=== PATIENT | male | born 1945 | race African-American/Black ===

== ENCOUNTER 2019-04-05 10:03 | Inpatient (IN) | payer MEDICARE ==
[~2019-04-05] VITALS: Ht 182.9 cm; Wt 81.6 kg
--- NOTE | 2019-04-05 10:33 | Emergency Room Report ---
History of Present Illness General Chief Complaint: Altered Level of Consciousness Source: EMS Present Illness HPI Disclaimer: Please note that this report is being documented using DRAGON technology. This can lead to erroneous entry secondary to incorrect interpretation by the dictating instrument. HPI: This 73-year-old male with history of liver cirrhosis requiring recurrent paracentesis, multiple strokes with baseline slurred speech, CHF, CAD status post stenting, diabetes presenting for evaluation of altered mental status. states he was in the hospital several days ago for abdominal swelling and pain having undergone multiple paracentesis. States he was in his usual state of health last night but awoke altered this morning. He was difficult to arouse and EMS was called. They found him confused and brought him in for evaluation. He currently denies any symptoms. Does note worsening lower extremity edema over the past few weeks according to . PMH: Cirrhosis, hepatic encephalopathy, strokes, CHF, CAD, diabetes, hypertension, hyperlipidemia PSH: Cardiac stent Allergies: None listed Social Hx: Former alcohol abuse Allergies: Coded Allergies: No Known Allergies (Unverified , 04/05/19) Nursing Documentation-PMH Past Medical History: No History, Except For Hx Diabetes: Yes Hx Cerebrovascular Accident: Yes Review of Systems All Other Systems: limited - HPI and recent history obtained from . Patient cannot provide history due to clinical condition Physical Exam Vital Signs Date Time Temp Pulse Resp B/P (MAP) Pulse Ox O2 Delivery O2 Flow Rate FiO2 04/05/19 09:59 97.5 50 16 130/73 (92) 99 Room Air General: Awake and disoriented. Pleasant, nonsensical answers HEENT: NC/AT. EOMI. slightly icteric sclera bilaterally. No nystagmus. Dry mucous membranes Cardiovascular: RRR. S1 and S2 normal. No murmur appreciated Resp: Normal work of breathing. No cough, wheezing or crackles appreciated Abdomen: Abdomen is soft, nondistended. Nontender. There is a bandage over the left lower quadrant with a puncture wound underneath that is nonbleeding, no signs of infection. No fluid wave appreciated. Skin: Intact. No abrasions, laceration or rash over the exposed skin aside from the puncture move the left side MSK: Normal tone and bulk. Moving all extremities. No obvious deformity. 3+ lower extremity pitting edema up to the knees bilaterally Neuro: Awake, pleasant, oriented to self only. Slightly slurred speech. Facial expressions are symmetrical. He is moving all extremities. Medical Decision Making Diagnostic Impression: Primary Impression: Hepatic encephalopathy Additional Impression: CKD (chronic kidney disease) ER Course This is a 73-year-old male with a history of liver cirrhosis presenting for altered mental status today. Differential includes but is not limited to traumatic head injury given his recent falls, hepatic encephalopathy, electrolyte abnormalities, infection. Will start a broad metabolic and infectious work-up as well as obtain a CT scan of the head. He will require admission. At this time I see no clinical evidence of SBP or need for emergent paracentesis Laboratory Tests Test 04/05/19 10:26 04/05/19 12:46 White Blood Count 7.3 K/UL (4.8-10.8) Red Blood Count 3.88 M/UL (4.70-6.10) L Hemoglobin 11.9 G/DL (14.2-18.0) L Hematocrit 35.8 % (42.0-52.0) L Mean Corpuscular Volume 92 FL (80-99) Mean Corpuscular Hemoglobin 30.7 PG (27.0-31.0) Mean Corpuscular Hemoglobin Concent 33.4 G/DL (32.0-36.0) Red Cell Distribution Width 14.6 % (11.6-14.8) Platelet Count 178 K/UL (150-450) Mean Platelet Volume 7.9 FL (6.5-10.1) Neutrophils (%) (Auto) 57.3 % (45.0-75.0) Lymphocytes (%) (Auto) 25.5 % (20.0-45.0) Monocytes (%) (Auto) 11.2 % (1.0-10.0) H Eosinophils (%) (Auto) 4.3 % (0.0-3.0) H Basophils (%) (Auto) 1.8 % (0.0-2.0) Sodium Level 141 MMOL/L (136-145) Potassium Level 4.5 MMOL/L (3.5-5.1) Chloride Level 108 MMOL/L (98-107) H Carbon Dioxide Level 21 MMOL/L (21-32) Anion Gap 12 mmol/L (5-15) Blood Urea Nitrogen 23 mg/dL (7-18) H Creatinine 2.0 MG/DL (0.55-1.30) H Estimate Glomerular Filtration Rate mL/min (>60) Glucose Level 141 MG/DL (74-106) H Lactic Acid Level 2.00 mmol/L (0.4-2.0) Calcium Level 9.3 MG/DL (8.5-10.1) Total Bilirubin 1.9 MG/DL (0.2-1.0) H Direct Bilirubin 0.5 MG/DL (0.0-0.3) H Aspartate Amino Transferase (AST) 46 U/L (15-37) H Alanine Aminotransferase (ALT) 14 U/L (12-78) Alkaline Phosphatase 93 U/L (46-116) Ammonia 176 umol/L (11-32) H Total Creatine Kinase 97 U/L (26-308) Creatine Kinase MB 1.1 NG/ML (0.0-3.6) Creatine Kinase MB Relative Index 1.1 Troponin I 0.000 ng/mL (0.000-0.056) Pro-B-Type Natriuretic Peptide 361 pg/mL (0-125) H Total Protein 7.4 G/DL (6.4-8.2) Albumin 2.3 G/DL (3.4-5.0) L Globulin 5.1 g/dL Albumin/Globulin Ratio 0.5 (1.0-2.7) L Salicylates Level < 0.2 ug/mL (2.8-20) L Acetaminophen Level < 2 MCG/ML (10-30) L Serum Alcohol < 3 mg/dL Urine Color Pale yellow Urine Appearance Clear Urine pH 6 (4.5-8.0) Urine Specific [place] 1.010 (1.005-1.035) Urine Protein Negative (NEGATIVE) Urine Glucose (UA) Negative (NEGATIVE) Urine Ketones Negative (NEGATIVE) Urine Blood 2+ (NEGATIVE) H Urine Nitrite Negative (NEGATIVE) Urine Bilirubin Negative (NEGATIVE) Urine Urobilinogen Normal MG/DL (0.0-1.0) Urine Leukocyte Esterase Negative (NEGATIVE) Urine RBC 5-10 /HPF (0 - 0) H Urine WBC 2-4 /HPF (0 - 0) Urine Squamous Epithelial Cells Few /LPF (NONE/OCC) Urine Bacteria Few /HPF (NONE) Urine Opiates Screen Negative (NEGATIVE) Urine Barbiturates Screen Negative (NEGATIVE) Phencyclidine (PCP) Screen Negative (NEGATIVE) Urine Amphetamines Screen Negative (NEGATIVE) Urine Benzodiazepines Screen Negative (NEGATIVE) Urine Cocaine Screen Negative (NEGATIVE) Urine Marijuana (THC) Screen Negative (NEGATIVE) EKG Diagnostic Results EKG Time: 10:30 Rate: normal Rhythm: NSR Other Impression Sinus rhythm, first-degree AV block with MA interval 314 ms. Prolonged QTc interval at 507 ms. Q waves in lead III and aVF consistent with prior infarct though of indeterminate age. There are no acute ischemic changes. Borderline left axis Rhythm Strip Diag. Results Rhythm Strip Time: 10:30 EP Interpretation: yes Rate: 60s Rhythm: NSR Reevaluation Time: 13:40 Last Vital Signs Date Time Temp Pulse Resp B/P (MAP) Pulse Ox O2 Delivery O2 Flow Rate FiO2 04/05/19 09:59 97.5 50 16 130/73 (92) 99 Room Air Status: unchanged Reevaluation Impression CT head unremarkable. No evidence of acute trauma. Labs show an elevated ammonia level consistent with hepatic encephalopathy and the scope of the patient's clinical presentation. He was given lactulose. Otherwise, his creatinine is elevated at 2.0 consistent with his kidney disease. No white count, labs otherwise largely unremarkable. No evidence of urinary tract infection. He will be admitted to the floor for further management. Disposition: ADMITTED INPATIENT Condition: Serious Ralph Man MD Apr 05, 2019 10:33
[2019-04-05 10:37] VITALS: BP 123/58
[2019-04-05 10:48] LABS: BASOPHILS % (AUTO) 1.8 % (0.0-2.0); EOSINOPHILS % (AUTO) 4.3 % (0.0-3.0); HEMATOCRIT 35.8 % (42.0-52.0); HEMOGLOBIN 11.9 G/DL (14.2-18.0); LYMPHOCYTES % (AUTO) 25.5 % (20.0-45.0); MEAN CORPUSCULAR VOLUME 92 FL (80-99); MONOCYTES % (AUTO) 11.2 % (1.0-10.0); NEUTROPHILS % (AUTO) 57.3 % (45.0-75.0); PLATELET COUNT 178 K/UL (150-450); RED BLOOD COUNT 3.88 M/UL (4.70-6.10); RED CELL DISTRIBUTION WIDTH 14.6 % (11.6-14.8); WHITE BLOOD COUNT 7.3 K/UL (4.8-10.8)
[2019-04-05 11:00] LABS: AMMONIA 176 umol/L (11-32)
[2019-04-05 11:21] LABS: ANION GAP 12 mmol/L (5-15); BLOOD UREA NITROGEN 23 mg/dL (7-18); CALCIUM 9.3 MG/DL (8.5-10.1); CARBON DIOXIDE 21 MMOL/L (21-32); CHLORIDE 108 MMOL/L (98-107); POTASSIUM 4.5 MMOL/L (3.5-5.1); SODIUM 141 MMOL/L (136-145)
[2019-04-05 11:34] LABS: ALANINE AMINOTRANSFERASE 14 U/L (12-78); ALBUMIN 2.3 G/DL (3.4-5.0); ALBUMIN/GLOBULIN RATIO 0.5 (1.0-2.7); ALKALINE PHOSPHATASE 93 U/L (46-116); ASPARTATE AMINO TRANSFERASE 46 U/L (15-37); BILIRUBIN,TOTAL 1.9 MG/DL (0.2-1.0); CKMB 1.1 NG/ML (0.0-3.6); CREATINE KINASE 97 U/L (26-308)
[2019-04-05 11:35] LABS: BILIRUBIN,DIRECT 0.5 MG/DL (0.0-0.3)
[2019-04-05] MEDS ORDERED: Lactulose 20gm/30ml UDC ORAL ONE (11:45)
--- NOTE | 2019-04-05 12:07 | Diagnostic Imaging Report ---
Indications: Altered level of consciousness Technique: Spiral acquisitions obtained through the brain. Angled axial and coronal 5 x 5 mm slices were reconstructed. Total dose length product 1376.09 mGycm. CTDI vol(s) 70.38 mGy. Dose reduction achieved using automated exposure control Comparison: None. Findings: There is age-related enlargement of the ventricles and extra axial CSF spaces. There is periventricular deep white matter low-attenuation consistent with chronic microvascular ischemic change. No acute intracranial hemorrhage or edema, mass effect, nor midline shift. Otherwise normal leal-white differentiation. There is evidence of prior bilateral cataract surgery. The mastoids are clear. The visualized sinuses are clear. The calvarium is intact Impression: Chronic and age-related changes, as described. Negative for acute intracranial bleed or mass effect The CT scanner at [facility] is accredited by the [employer] and the scans are performed using protocols designed to limit radiation exposure to as low as reasonably achievable to attain images of sufficient resolution adequate for diagnostic evaluation.
[2019-04-05 13:01] LABS: APPEARANCE,URINE CLEAR; BILIRUBIN, URINE NEGATIVE (NEGATIVE); COLOR,URINE PALE YELLOW; GLUCOSE, URINE (UA) NEGATIVE (NEGATIVE); KETONES,URINE NEGATIVE (NEGATIVE); LEUKOCYTE ESTERASE ,URINE NEGATIVE (NEGATIVE); NITRITE,URINE NEGATIVE (NEGATIVE); PH,URINE 6 (4.5-8.0); PROTEIN,URINE NEGATIVE (NEGATIVE); UROBILINOGEN,URINE NORMAL MG/DL (0.0-1.0)
[2019-04-05 13:45] VITALS: BP 127/59
[2019-04-05] MEDS ORDERED: ASPIRIN81 MG ORAL (13:54)
--- NOTE | 2019-04-05 14:36 | Consultation ---
Consult Note Consult Note asked to eval for renal failure This 73-year-old male with history of liver cirrhosis requiring recurrent paracentesis, multiple strokes with baseline slurred speech, CHF, CAD status post stenting, diabetes presenting for evaluation of altered mental status. states he was in the hospital several days ago for abdominal swelling and pain having undergone multiple paracentesis. States he was in his usual state of health last night but awoke altered this morning. He was difficult to arouse and EMS was called. They found him confused and brought him in for evaluation. He currently denies any symptoms. Does note worsening lower extremity edema over the past few weeks according to . PMH: Cirrhosis, hepatic encephalopathy, strokes, CHF, CAD, diabetes, hypertension, hyperlipidemia PSH: Cardiac stent Allergies: None listed Social Hx: Former alcohol abuse Past Medical History: No History, Except For Hx Diabetes: Yes Hx Cerebrovascular Accident: Yes data reviewed Amonia level high Assessment/Plan Renal failure- Likely chronic and multifactorial ( DM, HTN , Cirrhosui Hepatic encephalopathy Liver Cirrhosis CAD s/p CVAs lactulose slow hydrate cultures urine studies Phil Enriquez MD Apr 05, 2019 14:36
[2019-04-05 16:00] VITALS: BP 109/62
[2019-04-05] MEDS: Lactulose 20gm/30ml UDC ORAL SCH ×2 (17:57→21:09)
[2019-04-05 20:00] VITALS: BP 140/74
[2019-04-05 23:51] VITALS: BP 136/78
[2019-04-06 04:00] VITALS: BP 142/76
[2019-04-06 07:01] LABS: BASOPHILS % (AUTO) 1.5 % (0.0-2.0); EOSINOPHILS % (AUTO) 3.7 % (0.0-3.0); HEMATOCRIT 35.1 % (42.0-52.0); HEMOGLOBIN 11.6 G/DL (14.2-18.0); LYMPHOCYTES % (AUTO) 25.8 % (20.0-45.0); MEAN CORPUSCULAR VOLUME 92 FL (80-99); MONOCYTES % (AUTO) 10.9 % (1.0-10.0); NEUTROPHILS % (AUTO) 58.1 % (45.0-75.0); PLATELET COUNT 176 K/UL (150-450); RED BLOOD COUNT 3.79 M/UL (4.70-6.10); RED CELL DISTRIBUTION WIDTH 14.6 % (11.6-14.8); WHITE BLOOD COUNT 8.5 K/UL (4.8-10.8)
[2019-04-06 07:50] LABS: AMMONIA 95 umol/L (11-32)
[2019-04-06 07:51] LABS: ALANINE AMINOTRANSFERASE 19 U/L (12-78); ALBUMIN 2.2 G/DL (3.4-5.0); ALBUMIN/GLOBULIN RATIO 0.4 (1.0-2.7); ALKALINE PHOSPHATASE 90 U/L (46-116); ANION GAP 11 mmol/L (5-15); ASPARTATE AMINO TRANSFERASE 39 U/L (15-37); BILIRUBIN,TOTAL 2.1 MG/DL (0.2-1.0); BLOOD UREA NITROGEN 21 mg/dL (7-18); CALCIUM 9.1 MG/DL (8.5-10.1); CARBON DIOXIDE 21 MMOL/L (21-32); CHLORIDE 110 MMOL/L (98-107); CHOLESTEROL 61 MG/DL (< 200); CREATINE KINASE 83 U/L (26-308); CREATININE 1.9 MG/DL (0.55-1.30); FERRITIN 342 NG/ML (8-388); GAMMA GLUTAMYL TRANSPEPTIDASE 47 U/L (5-85); HDL CHOLESTEROL 28 MG/DL (40-60); PHOSPHORUS 3.3 MG/DL (2.5-4.9); SODIUM 142 MMOL/L (136-145); TRIGLYCERIDES 78 MG/DL (30-150)
[2019-04-06 07:52] LABS: BILIRUBIN,DIRECT 0.6 MG/DL (0.0-0.3)
[2019-04-06 08:00] VITALS: BP 112/72
[2019-04-06] MEDS: Aspirin Baby 81mg ORAL SCH (09:28)
[2019-04-06] MEDS: Lactulose 20gm/30ml UDC ORAL SCH ×4 (09:29→18:00)
[2019-04-06 12:00] VITALS: BP 109/60
--- NOTE | 2019-04-06 13:42 | Nephrology Progress Note ---
Assessment/Plan Problem List: (1) CKD (chronic kidney disease) (2) Hepatic encephalopathy (3) CAD (coronary artery disease) (4) CVA (cerebral vascular accident) Assessment Renal failure- Likely chronic and multifactorial ( DM, HTN , Cirrhosui Hepatic encephalopathy Liver Cirrhosis CAD s/p CVAs Plan lactulose po slow hydrate cultures urine studies St eval Per GI Subjective ROS Limited/Unobtainable: No Neurologic/Psychiatric: Reports: other - encephalopathic Objective Objective Last 24 Hour Vital Signs Date Time Temp Pulse Resp B/P (MAP) Pulse Ox O2 Delivery O2 Flow Rate FiO2 04/06/19 12:00 97.5 77 16 109/60 (76) 95 04/06/19 09:00 Room Air 04/06/19 08:00 97.7 76 17 112/72 (85) 97 04/06/19 04:00 97.6 79 19 142/76 (98) 96 04/05/19 23:51 97.9 71 17 136/78 (97) 97 04/05/19 20:13 Room Air 04/05/19 20:00 97.4 75 18 140/74 (96) 98 04/05/19 16:00 98.8 67 16 109/62 (78) 98 04/05/19 16:00 Room Air 04/05/19 15:49 Room Air 04/05/19 13:45 97.2 63 17 127/59 (81) 100 04/05/19 13:40 97.5 14 123/58 100 Room Air Intake and Output 04/05/19 04/06/19 19:00 07:00 Intake Total 100 ml 600 ml Balance 100 ml 600 ml Intake IV Total 100 ml 600 ml # Voids 1 3 Laboratory Tests 04/06/19 05:00: Urine Eosinophils None seen, Urine Random Sodium 104 04/06/19 05:44: White Blood Count 8.5, Red Blood Count 3.79L, Hemoglobin 11.6L, Hematocrit 35.1L , Mean Corpuscular Volume 92, Mean Corpuscular Hemoglobin 30.7, Mean Corpuscular Hemoglobin Concent 33.2, Red Cell Distribution Width 14.6, Platelet Count 176, Mean Platelet Volume 6.9, Neutrophils (%) (Auto) 58.1, Lymphocytes (% ) (Auto) 25.8, Monocytes (%) (Auto) 10.9H, Eosinophils (%) (Auto) 3.7H, Basophils (%) (Auto) 1.5, Sodium Level 142, Potassium Level 4.0, Chloride Level 110H, Carbon Dioxide Level 21, Anion Gap 11, Blood Urea Nitrogen 21H, Creatinine 1.9H, Estimat Glomerular Filtration Rate , Glucose Level 127H, Hemoglobin A1c 5.7, Uric Acid 8.3H, Calcium Level 9.1, Phosphorus Level 3.3, Magnesium Level 1.6L, Ferritin 342, Total Bilirubin 2.1H, Direct Bilirubin 0.6H , Gamma Glutamyl Transpeptidase 47, Aspartate Amino Transf (AST/SGOT) 39H, Alanine Aminotransferase (ALT/SGPT) 19, Alkaline Phosphatase 90, Ammonia 95H, Total Creatine Kinase 83, Troponin I 0.011, C-Reactive Protein, Quantitative 4.2H, Pro-B-Type Natriuretic Peptide 1528H, Total Protein 7.2, Albumin 2.2L, Globulin 5.0, Albumin/Globulin Ratio 0.4L, Triglycerides Level 78, Cholesterol Level 61, LDL Cholesterol 26, HDL Cholesterol 28L, Cholesterol/HDL Ratio 2.2L, Lipase 87, Vitamin B12 Level 936, Folate 9.1, Thyroid Stimulating Hormone (TSH) 1.972 Height (Feet): 6 Height (Inches): 0.00 Weight (Pounds): 180 General Appearance: no apparent distress Cardiovascular: normal rate Respiratory/Chest: decreased breath sounds Abdomen: distended, other - ascitis Objective LE edema Phil Enriquez MD Apr 06, 2019 13:42
--- NOTE | 2019-04-06 15:04 | Consultation ---
History of Present Illness General Date patient seen: Apr 06, 2019 Reason for Hospitalization: Altered Level of Consciousness Present Illness HPI 73-year-old male with history of liver cirrhosis requiring recurrent paracentesis, multiple strokes with baseline slurred speech, CHF, CAD status post stenting, diabetes presenting for evaluation of altered mental status. states he was in the hospital several days ago for abdominal swelling and pain having undergone multiple paracentesis. Also noted to have worsening lower extremity edema over the past few weeks according to . States has had this for sometime now but worsening recently right foot worse then left. surgery called to evaluate and assist with care. patient seen, chart reviewed, patient examined. PMH: Cirrhosis, hepatic encephalopathy, strokes, CHF, CAD, diabetes, hypertension, hyperlipidemia PSH: Cardiac stent Allergies: None listed Social Hx: Former alcohol abuse Allergies: Coded Allergies: No Known Allergies (Unverified , 04/05/19) Medication History Scheduled Aspirin* (Aspirin*), 81 MG ORAL DAILY, (Reported) Patient History History Provided By: Patient, Family Member, Medical Record, PMD Healthcare decision maker Resuscitation status Full Code Advanced Directive on File No Past Medical/Surgical History Past Medical/Surgical History: (1) Abdominal pain (2) Leg edema (3) Hepatic encephalopathy (4) CKD (chronic kidney disease) (5) CAD (coronary artery disease) (6) CVA (cerebral vascular accident) Review of Systems Review of Symptoms General ROS: no weight loss or fever Psychological ROS: no depression or mood changes, no memory loss Ophthalmic ROS: no visual changes or eye irritation ENT ROS: no nasal congestion, hearing loss, dizziness Allergy and Immunology ROS: no allergic symptoms or urticaria Hematological and Lymphatic ROS: no swollen glands, unusual bleeding or bruising Endocrine ROS: no polyuria, polydipsia, weight changes, temperature intolerance Respiratory ROS: no cough, shortness of breath, or wheezing Cardiovascular ROS: no chest pain or dyspnea on exertion Gastrointestinal ROS: denies abdominal pain, no bright red blood in stool. Musculoskeletal ROS: no myalgias or arthralgias Neurological ROS: no TIA or stroke symptoms Dermatological ROS: no new or changing skin lesions, rashes or pruritis Physical Exam Physical Exam General appearance: alert, cooperative, no distress, appears stated age Head: Normocephalic, without obvious abnormality, atraumatic Eyes: conjunctivae/corneas clear. PERRL, EOM's intact. Fundi benign Throat: Lips, mucosa, and tongue normal. Teeth and gums normal Neck: supple, symmetrical, trachea midline, no adenopathy, thyroid: not enlarged, symmetric, no tenderness/mass/nodules, no carotid bruit and no JVD Lungs: clear to auscultation bilaterally Heart: regular rate and rhythm, S1, S2 normal, no murmur, click, rub or gallop Abdomen: soft, non-tender. Bowel sounds normal. No masses, no organomegaly Extremities: extremities with pitting edema, atraumatic, no cyanosis Pulses: 2+ and symmetric Skin: Skin color, texture, turgor normal. No rashes or lesions Neurologic: Grossly normal Last 24 Hour Vital Signs Date Time Temp Pulse Resp B/P (MAP) Pulse Ox O2 Delivery O2 Flow Rate FiO2 04/06/19 12:00 97.5 77 16 109/60 (76) 95 04/06/19 09:00 Room Air 04/06/19 08:00 97.7 76 17 112/72 (85) 97 04/06/19 04:00 97.6 79 19 142/76 (98) 96 04/05/19 23:51 97.9 71 17 136/78 (97) 97 04/05/19 20:13 Room Air 04/05/19 20:00 97.4 75 18 140/74 (96) 98 04/05/19 16:00 98.8 67 16 109/62 (78) 98 04/05/19 16:00 Room Air 04/05/19 15:49 Room Air Intake and Output 04/05/19 04/06/19 19:00 07:00 Intake Total 100 ml 600 ml Balance 100 ml 600 ml Intake IV Total 100 ml 600 ml # Voids 1 3 Laboratory Tests Test 04/06/19 05:00 04/06/19 05:44 Urine Eosinophils None seen (NONE SEEN) Urine Random Sodium 104 mmol/L (20-110) White Blood Count 8.5 K/UL (4.8-10.8) Red Blood Count 3.79 M/UL (4.70-6.10) L Hemoglobin 11.6 G/DL (14.2-18.0) L Hematocrit 35.1 % (42.0-52.0) L Mean Corpuscular Volume 92 FL (80-99) Mean Corpuscular Hemoglobin 30.7 PG (27.0-31.0) Mean Corpuscular Hemoglobin Concent 33.2 G/DL (32.0-36.0) Red Cell Distribution Width 14.6 % (11.6-14.8) Platelet Count 176 K/UL (150-450) Mean Platelet Volume 6.9 FL (6.5-10.1) Neutrophils (%) (Auto) 58.1 % (45.0-75.0) Lymphocytes (%) (Auto) 25.8 % (20.0-45.0) Monocytes (%) (Auto) 10.9 % (1.0-10.0) H Eosinophils (%) (Auto) 3.7 % (0.0-3.0) H Basophils (%) (Auto) 1.5 % (0.0-2.0) Sodium Level 142 MMOL/L (136-145) Potassium Level 4.0 MMOL/L (3.5-5.1) Chloride Level 110 MMOL/L (98-107) H Carbon Dioxide Level 21 MMOL/L (21-32) Anion Gap 11 mmol/L (5-15) Blood Urea Nitrogen 21 mg/dL (7-18) H Creatinine 1.9 MG/DL (0.55-1.30) H Estimat Glomerular Filtration Rate mL/min (>60) Glucose Level 127 MG/DL (74-106) H Hemoglobin A1c 5.7 % (4.3-6.0) Uric Acid 8.3 MG/DL (2.6-7.2) H Calcium Level 9.1 MG/DL (8.5-10.1) Phosphorus Level 3.3 MG/DL (2.5-4.9) Magnesium Level 1.6 MG/DL (1.8-2.4) L Ferritin 342 NG/ML (8-388) Total Bilirubin 2.1 MG/DL (0.2-1.0) H Direct Bilirubin 0.6 MG/DL (0.0-0.3) H Gamma Glutamyl Transpeptidase 47 U/L (5-85) Aspartate Amino Transf (AST/SGOT) 39 U/L (15-37) H Alanine Aminotransferase (ALT/SGPT) 19 U/L (12-78) Alkaline Phosphatase 90 U/L (46-116) Ammonia 95 umol/L (11-32) H Total Creatine Kinase 83 U/L (26-308) Troponin I 0.011 ng/mL (0.000-0.056) C-Reactive Protein, Quantitative 4.2 mg/dL (0.00-0.90) H Pro-B-Type Natriuretic Peptide 1528 pg/mL (0-125) H Total Protein 7.2 G/DL (6.4-8.2) Albumin 2.2 G/DL (3.4-5.0) L Globulin 5.0 g/dL Albumin/Globulin Ratio 0.4 (1.0-2.7) L Triglycerides Level 78 MG/DL (30-150) Cholesterol Level 61 MG/DL (< 200) LDL Cholesterol 26 mg/dL (<100) HDL Cholesterol 28 MG/DL (40-60) L Cholesterol/HDL Ratio 2.2 (3.3-4.4) L Lipase 87 U/L (73-393) Vitamin B12 Level 936 PG/ML (193-986) Folate 9.1 NG/ML (8.6-58.9) Thyroid Stimulating Hormone (TSH) 1.972 uiU/mL (0.358-3.740) Height (Feet): 6 Height (Inches): 0.00 Weight (Pounds): 180 Medications Current Medications Medications (Trade) Dose Ordered Sig/Miranda Route PRN Reason Start Time Stop Time Status Last Admin Dose Admin Aspirin (ASA) 81 mg DAILY ORAL 04/06/19 09:00 05/06/19 08:59 04/06/19 09:28 Docusate Sodium (Colace) 100 mg TWICE A DAY ORAL 04/06/19 18:00 05/06/19 17:59 Lactulose (Cephulac) 30 gm FOUR TIMES A DAY ORAL 04/05/19 18:00 05/05/19 17:59 04/06/19 13:07 Pantoprazole (Protonix) 40 mg DAILY ORAL 04/06/19 13:45 05/06/19 13:44 Sodium Chloride 1,000 ml @ 50 mls/hr Q20H IV 04/05/19 14:45 05/05/19 14:44 04/06/19 12:03 Assessment/Plan Problem List: (1) Leg edema Assessment & Plan: possible cardiac related venous duplex ordered ICD Codes: R60.0 - Localized edema SNOMED: 388514161 (2) Abdominal pain Assessment & Plan: due to ascites. hx of prior paracentesis no surgical abdomen soft, distended, fluid filled o n/v/f/c okay for diet will follow with recs thank you ICD Codes: R10.9 - Unspecified abdominal pain SNOMED: 22466648 (3) Abnormal LFTs Assessment & Plan: elevated t bili. abnormal lft's not obstructive in nature no acute intervention planned trend labs will follow ICD Codes: R94.5 - Abnormal results of liver function studies SNOMED: 164192000 Sumit Fernandez Apr 06, 2019 15:04
[2019-04-06 16:00] VITALS: BP 123/70
--- NOTE | 2019-04-06 17:47 | GI Initial Consult Note ---
History of Present Illness General Date patient seen: Apr 06, 2019 Time patient seen: 17:43 Reason for Hospitalization: Altered Level of Consciousness Referring physician: RAPHAEL ESPINOSA Reason for Consultation: Hepatic encephalopathy Present Illness HPI This 73-year-old male with history of liver cirrhosis requiring recurrent paracentesis, multiple strokes with baseline slurred speech, CHF, CAD status post stenting, diabetes presenting for evaluation of altered mental status. states he was in the hospital several days ago for abdominal swelling and pain having undergone multiple paracentesis. States he was in his usual state of health last night but awoke altered this morning. He was difficult to arouse and EMS was called. They found him confused and brought him in for evaluation. He currently denies any symptoms. Does note worsening lower extremity edema over the past few weeks according to . GI consulted for hepatic encephalopathy. Patient seen, awake alert no apparent distress. Patient is confused, unable to provide any pertinent history. When asked about any alcohol use, the patient denies. Unknown history of endoscopic and colonoscopy. Labs reviewed; hemoglobin 11.6 hematocrit 35.1, ammonia 95, creatinine 1.9, AST 39, ALT 19, total bilirubin 2.1. Home Meds Reported Medications Aspirin* (ASPIRIN*) 81 Mg Tab.chew, 81 MG ORAL DAILY, TAB 04/05/19 Med list reviewed/reconciled: Yes Allergies: Coded Allergies: No Known Allergies (Unverified , 04/05/19) Patient History Limited by: medical condition History Provided By: Medical Record PMH Narrative PMH: Cirrhosis, hepatic encephalopathy, strokes, CHF, CAD, diabetes, hypertension, hyperlipidemia PSH: Cardiac stent Allergies: None listed Social Hx: Former alcohol abuse Allergies: Coded Allergies: No Known Allergies (Unverified , 04/05/19) Nursing Documentation-[facility] Past Medical History: No History, Except For Hx Diabetes: Yes Hx Cerebrovascular Accident: Yes Social History: Reports: alcohol use Review of Systems All Other Systems: limited Physical Exam Vital Signs Date Time Temp Pulse Resp B/P (MAP) Pulse Ox O2 Delivery O2 Flow Rate FiO2 04/05/19 09:59 97.5 50 16 130/73 (92) 99 Room Air Sp02 EP Interpretation: reviewed, normal Labs Laboratory Tests Test 04/06/19 05:00 04/06/19 05:44 Urine Eosinophils None seen (NONE SEEN) Urine Random Sodium 104 mmol/L (20-110) White Blood Count 8.5 K/UL (4.8-10.8) Red Blood Count 3.79 M/UL (4.70-6.10) L Hemoglobin 11.6 G/DL (14.2-18.0) L Hematocrit 35.1 % (42.0-52.0) L Mean Corpuscular Volume 92 FL (80-99) Mean Corpuscular Hemoglobin 30.7 PG (27.0-31.0) Mean Corpuscular Hemoglobin Concent 33.2 G/DL (32.0-36.0) Red Cell Distribution Width 14.6 % (11.6-14.8) Platelet Count 176 K/UL (150-450) Mean Platelet Volume 6.9 FL (6.5-10.1) Neutrophils (%) (Auto) 58.1 % (45.0-75.0) Lymphocytes (%) (Auto) 25.8 % (20.0-45.0) Monocytes (%) (Auto) 10.9 % (1.0-10.0) H Eosinophils (%) (Auto) 3.7 % (0.0-3.0) H Basophils (%) (Auto) 1.5 % (0.0-2.0) Sodium Level 142 MMOL/L (136-145) Potassium Level 4.0 MMOL/L (3.5-5.1) Chloride Level 110 MMOL/L (98-107) H Carbon Dioxide Level 21 MMOL/L (21-32) Anion Gap 11 mmol/L (5-15) Blood Urea Nitrogen 21 mg/dL (7-18) H Creatinine 1.9 MG/DL (0.55-1.30) H Estimat Glomerular Filtration Rate mL/min (>60) Glucose Level 127 MG/DL (74-106) H Hemoglobin A1c 5.7 % (4.3-6.0) Uric Acid 8.3 MG/DL (2.6-7.2) H Calcium Level 9.1 MG/DL (8.5-10.1) Phosphorus Level 3.3 MG/DL (2.5-4.9) Magnesium Level 1.6 MG/DL (1.8-2.4) L Ferritin 342 NG/ML (8-388) Total Bilirubin 2.1 MG/DL (0.2-1.0) H Direct Bilirubin 0.6 MG/DL (0.0-0.3) H Gamma Glutamyl Transpeptidase 47 U/L (5-85) Aspartate Amino Transf (AST/SGOT) 39 U/L (15-37) H Alanine Aminotransferase (ALT/SGPT) 19 U/L (12-78) Alkaline Phosphatase 90 U/L (46-116) Ammonia 95 umol/L (11-32) H Total Creatine Kinase 83 U/L (26-308) Troponin I 0.011 ng/mL (0.000-0.056) C-Reactive Protein, Quantitative 4.2 mg/dL (0.00-0.90) H Pro-B-Type Natriuretic Peptide 1528 pg/mL (0-125) H Total Protein 7.2 G/DL (6.4-8.2) Albumin 2.2 G/DL (3.4-5.0) L Globulin 5.0 g/dL Albumin/Globulin Ratio 0.4 (1.0-2.7) L Triglycerides Level 78 MG/DL (30-150) Cholesterol Level 61 MG/DL (< 200) LDL Cholesterol 26 mg/dL (<100) HDL Cholesterol 28 MG/DL (40-60) L Cholesterol/HDL Ratio 2.2 (3.3-4.4) L Lipase 87 U/L (73-393) Vitamin B12 Level 936 PG/ML (193-986) Folate 9.1 NG/ML (8.6-58.9) Thyroid Stimulating Hormone (TSH) 1.972 uiU/mL (0.358-3.740) General Appearance: well appearing, no apparent distress, alert Head: normocephalic EENT: PERRL/EOMI, normal ENT inspection Neck: supple Respiratory: normal breath sounds, no respiratory distress Cardiovascular: normal rate Gastrointestinal: normal inspection, non tender, soft, normal bowel sounds, non -distended Rectal: deferred Genitourinary: deferred Musculoskeletal: normal inspection, back normal Neurologic: normal inspection, alert, oriented x3, responsive Psychiatric: normal inspection, judgement/insight normal, memory normal Skin: normal inspection, normal color, no rash, warm/dry, palpation normal, well hydrated Lymphatic: normal inspection, no adenopathy Current Medications Current Medications Medications (Trade) Dose Ordered Sig/Miranda Route PRN Reason Start Time Stop Time Status Last Admin Dose Admin Aspirin (ASA) 81 mg DAILY ORAL 04/06/19 09:00 05/06/19 08:59 04/06/19 09:28 Docusate Sodium (Colace) 100 mg TWICE A DAY ORAL 04/06/19 18:00 05/06/19 17:59 Lactulose (Cephulac) 30 gm FOUR TIMES A DAY ORAL 04/05/19 18:00 05/05/19 17:59 04/06/19 13:07 Pantoprazole (Protonix) 40 mg DAILY ORAL 04/06/19 13:45 05/06/19 13:44 04/06/19 15:08 Sodium Chloride 1,000 ml @ 50 mls/hr Q20H IV 04/05/19 14:45 05/05/19 14:44 04/06/19 12:03 GI: Plan Problems: (1) Liver cirrhosis (2) Hepatic encephalopathy (3) Abnormal LFTs (4) Abdominal pain Plan Okay to advance diet as tolerated We will obtain abdominal ultrasound to evaluate the liver Obtain hepatitis panel Trend LFTs, ammonia levels Lactulose + Xifaxan PPI Will consider paracentesis if needed OB stool to rule out any GI bleed PRN transfusions Discussed with Dr. De La Torre. Thank you for this patient referral, we will follow. The patient was seen and examined at bedside and all new and available data was reviewed in the patients chart. I agree with the above findings, impression and plan. (Patient seen earlier today. Signature stamp does not reflect patient encounter time.). - MD Namita Castillo,[facility] SECURITY STRATEGIST Apr 06, 2019 17:47
[2019-04-06] MEDS: Docusate 100mg cap ORAL SCH (17:48)
[2019-04-06 20:42] VITALS: BP 118/69
[2019-04-07 00:13] VITALS: BP 133/71
--- NOTE | 2019-04-07 00:15 | History and Physical Report ---
DATE OF ADMISSION: 04/05/2019 HISTORY OF PRESENT ILLNESS: The patient is admitted for status post fall, cirrhosis with altered mental status. He came in for altered mental status, rule out hepatic encephalopathy. The patient apparently has history of liver cirrhosis, multiple strokes from the past. brought him in for altered mental status, multiple falls. The patient was recently had seizures and multiple paracentesis for his hepatic encephalopathy, cirrhosis. He is noncompliant with lactulose. The patient is confused, slurred speech and multiple falls. Cannot get a reliable history from the patient. PAST MEDICAL HISTORY: Significant for cirrhosis, history of CVA, hepatic encephalopathy, CAD, leg edema, history of sacral decubitus, history of abnormal LFTs. PAST SURGICAL HISTORY: Cardiac stent, prostate surgery. MEDICATIONS: Aspirin. SOCIAL HISTORY: History of smoking. Also denies alcohol or drug abuse. FAMILY HISTORY: Noncontributory. REVIEW OF SYSTEMS: Unable to obtain. Poor historian. PHYSICAL EXAMINATION: VITAL SIGNS: Temperature 97.7, pulse is 76, blood pressure is 112/72. HEENT: PERRLA. NECK: Supple. No lymphadenopathy. CHEST: Clear to auscultation CARDIOVASCULAR: Regular rate and rhythm. No murmurs or extra sounds. GASTROINTESTINAL: Soft and nontender. Distended. No organomegaly. EXTREMITIES: 1+ edema. Reflexes are equal on both sides. Oriented to name only, confused with generalized weakness. LABORATORY DATA: WBC of 7.3, hemoglobin 11.9, platelets 178,000. Sodium 142, potassium 4, BUN of 21, creatinine 1.9, and glucose of 127. AST of 39, ALT of 19, total bilirubin of 2.1. ASSESSMENT AND PLAN: 1. Cirrhosis. 2. Acute renal failure. 3. Altered mental status. 4. Hepatic encephalopathy. Check the ammonia level. basically has consulted Dr. De La Torre, Dr. Enriquez, Dr. Ochoa for the altered mental status and management of the cirrhosis. Alta Kelley M.D. DR: NEDRA JOB#: [id number] CC:
[2019-04-07 04:00] VITALS: BP 114/61
[2019-04-07 07:03] LABS: INR 1.5 (0.9-1.1)
[2019-04-07 07:08] LABS: BASOPHILS % (AUTO) 2.2 % (0.0-2.0); EOSINOPHILS % (AUTO) 5.1 % (0.0-3.0); HEMATOCRIT 32.9 % (42.0-52.0); HEMOGLOBIN 11.1 G/DL (14.2-18.0); LYMPHOCYTES % (AUTO) 29.9 % (20.0-45.0); MEAN CORPUSCULAR VOLUME 92 FL (80-99); MONOCYTES % (AUTO) 11.1 % (1.0-10.0); NEUTROPHILS % (AUTO) 51.7 % (45.0-75.0); PLATELET COUNT 159 K/UL (150-450); RED CELL DISTRIBUTION WIDTH 15.1 % (11.6-14.8); WHITE BLOOD COUNT 6.9 K/UL (4.8-10.8)
[2019-04-07 07:13] LABS: AMMONIA 64 umol/L (11-32)
[2019-04-07 07:37] LABS: ALANINE AMINOTRANSFERASE 11 U/L (12-78); ALBUMIN 1.9 G/DL (3.4-5.0); ALBUMIN/GLOBULIN RATIO 0.4 (1.0-2.7); ALKALINE PHOSPHATASE 77 U/L (46-116); ANION GAP 10 mmol/L (5-15); ASPARTATE AMINO TRANSFERASE 33 U/L (15-37); BILIRUBIN,DIRECT 0.5 MG/DL (0.0-0.3); BILIRUBIN,TOTAL 1.9 MG/DL (0.2-1.0); BLOOD UREA NITROGEN 15 mg/dL (7-18); CALCIUM 8.8 MG/DL (8.5-10.1); CARBON DIOXIDE 20 MMOL/L (21-32); CHLORIDE 110 MMOL/L (98-107); CREATININE 1.8 MG/DL (0.55-1.30); FERRITIN 302 NG/ML (8-388); GAMMA GLUTAMYL TRANSPEPTIDASE 35 U/L (5-85); PHOSPHORUS 2.9 MG/DL (2.5-4.9); POTASSIUM 3.4 MMOL/L (3.5-5.1); SODIUM 140 MMOL/L (136-145)
[2019-04-07 07:39] LABS: % IRON SATURATION 59 % (15-50); IRON 59 ug/dL (50-175); TOTAL IRON BINDING CAPACITY 100 ug/dL (250-450)
[2019-04-07 08:00] VITALS: BP 102/61
[2019-04-07] MEDS: Docusate 100mg cap ORAL SCH ×2 (09:15→17:15)
[2019-04-07] MEDS: Aspirin Baby 81mg ORAL SCH (09:15)
[2019-04-07] MEDS: Lactulose 20gm/30ml UDC ORAL SCH ×5 (09:16→20:21)
--- NOTE | 2019-04-07 11:04 | Diagnostic Imaging Report ---
Indication: Abdominal pain Technique: [employer] and duplex images of the upper abdomen were obtained Comparison: Findings: Gallbladder is not well-demonstrated and is nondistended, demonstrates hyperechoic material with shadowing probably representing, versus tumefactive sludge. Gallbladder wall is thickened, measuring 6 mm thick. Sonographic Zaragoza's sign is not reported. Common bile duct measures 7 mm in diameter. No intrahepatic biliary ductal dilatation. Liver demonstrates atrophy, coarsened echogenicity and surface nodularity. There is ascites fluid present. Portal vein and hepatic veins are patent. Pancreas is unremarkable. Spleen is unremarkable. Left kidney measures 10.5 cm in length. Right kidney measures 9.2 cm length. Both kidneys demonstrate borderline increase echogenicity. There is no hydronephrosis. No focal abnormality . Abdominal aorta is obscured by bowel gas . Pleural fluid is seen on the left Impression: Evidence of hepatic cirrhosis, with coarsened atrophic nodular liver Probable cholelithiasis. Gallbladder wall thickening is noted, probably secondary to the hemodynamic derangements related to the hepatic disease and exaggerated by lack of distention. Less likely, gallbladder wall thickening could indicate acute cholecystitis, and bladder are nuclear scan should be considered if there is high clinical suspicion Ascites Left pleural effusion Mildly increased renal echogenicity, could indicate medical renal disease Note inability to visualize the abdominal aorta
[2019-04-07 12:00] VITALS: BP 109/70
--- NOTE | 2019-04-07 12:29 | Surgery Progress Note ---
Surgery Progress Note Subjective Additional Comments no acute events comfortable stable no complaints Objective Last 24 Hour Vital Signs Date Time Temp Pulse Resp B/P (MAP) Pulse Ox O2 Delivery O2 Flow Rate FiO2 04/07/19 09:00 Room Air 04/07/19 08:00 98.9 82 18 102/61 (75) 97 04/07/19 04:00 98.2 92 20 114/61 (78) 96 04/07/19 00:13 98.5 81 19 133/71 (91) 97 04/06/19 20:55 Room Air 04/06/19 20:42 98.0 80 18 118/69 (85) 100 04/06/19 16:00 98.4 85 18 123/70 (87) 99 I&O Intake and Output 04/06/19 04/07/19 19:00 07:00 Intake Total 1052 ml 600 ml Balance 1052 ml 600 ml Intake Oral 500 ml IV Total 552 ml 600 ml # Voids 2 # Bowel Movements 2 2 Dressing: other Wound: other Cardiovascular: RSR Respiratory: clear Abdomen: soft, flat, non-tender, present bowel sounds Extremities: edema, no cyanosis Laboratory Tests Test 04/07/19 00:45 04/07/19 01:15 04/07/19 05:39 Stool Occult Blood Negative (NEGATIVE) Urine Eosinophils None seen (NONE SEEN) White Blood Count 6.9 K/UL (4.8-10.8) Red Blood Count 3.60 M/UL (4.70-6.10) L Hemoglobin 11.1 G/DL (14.2-18.0) L Hematocrit 32.9 % (42.0-52.0) L Mean Corpuscular Volume 92 FL (80-99) Mean Corpuscular Hemoglobin 30.8 PG (27.0-31.0) Mean Corpuscular Hemoglobin Concent 33.6 G/DL (32.0-36.0) Red Cell Distribution Width 15.1 % (11.6-14.8) H Platelet Count 159 K/UL (150-450) Mean Platelet Volume 7.7 FL (6.5-10.1) Neutrophils (%) (Auto) 51.7 % (45.0-75.0) Lymphocytes (%) (Auto) 29.9 % (20.0-45.0) Monocytes (%) (Auto) 11.1 % (1.0-10.0) H Eosinophils (%) (Auto) 5.1 % (0.0-3.0) H Basophils (%) (Auto) 2.2 % (0.0-2.0) H Reticulocyte Count 0.9 % (0.5-2.0) Prothrombin Time 15.4 SEC (9.30-11.50) H Prothromb Time International Ratio 1.5 (0.9-1.1) H Activated Partial Thromboplast Time 37 SEC (23-33) H Sodium Level 140 MMOL/L (136-145) Potassium Level 3.4 MMOL/L (3.5-5.1) L Chloride Level 110 MMOL/L (98-107) H Carbon Dioxide Level 20 MMOL/L (21-32) L Anion Gap 10 mmol/L (5-15) Blood Urea Nitrogen 15 mg/dL (7-18) Creatinine 1.8 MG/DL (0.55-1.30) H Estimat Glomerular Filtration Rate mL/min (>60) Glucose Level 120 MG/DL (74-106) H Uric Acid 8.1 MG/DL (2.6-7.2) H Calcium Level 8.8 MG/DL (8.5-10.1) Phosphorus Level 2.9 MG/DL (2.5-4.9) Magnesium Level 1.4 MG/DL (1.8-2.4) L Iron Level 59 ug/dL (50-175) Total Iron Binding Capacity 100 ug/dL (250-450) L Percent Iron Saturation 59 % (15-50) H Unsaturated Iron Binding 41 ug/dL (112-346) L Ferritin 302 NG/ML (8-388) Total Bilirubin 1.9 MG/DL (0.2-1.0) H Direct Bilirubin 0.5 MG/DL (0.0-0.3) H Gamma Glutamyl Transpeptidase 35 U/L (5-85) Aspartate Amino Transf (AST/SGOT) 33 U/L (15-37) Alanine Aminotransferase (ALT/SGPT) 11 U/L (12-78) L Alkaline Phosphatase 77 U/L (46-116) Ammonia 64 umol/L (11-32) H C-Reactive Protein, Quantitative 4.7 mg/dL (0.00-0.90) H Pro-B-Type Natriuretic Peptide 1760 pg/mL (0-125) H Total Protein 6.6 G/DL (6.4-8.2) Albumin 1.9 G/DL (3.4-5.0) L Globulin 4.7 g/dL Albumin/Globulin Ratio 0.4 (1.0-2.7) L Carcinoembryonic Antigen Pending Vitamin B12 Level 834 PG/ML (193-986) Folate 9.7 NG/ML (8.6-58.9) Thyroid Stimulating Hormone (TSH) 2.003 uiU/mL (0.358-3.740) Free Thyroxine 1.69 NG/DL (0.76-1.46) H Hepatitis A IgM Antibody Pending Hepatitis B Surface Antigen Pending Hepatitis B Core IgM Antibody Pending Hepatitis C Antibody Pending Plan Problems: (1) Leg edema Assessment & Plan: possible cardiac related venous duplex ordered (2) Abdominal pain Assessment & Plan: due to ascites. hx of prior paracentesis no surgical abdomen soft, distended, fluid filled o n/v/f/c okay for diet will follow with recs thank you (3) Abnormal LFTs Assessment & Plan: elevated t bili. abnormal lft's not obstructive in nature no acute intervention planned Impression: Evidence of hepatic cirrhosis, with coarsened atrophic nodular liver Probable cholelithiasis. Gallbladder wall thickening is noted, probably secondary to the hemodynamic derangements related to the hepatic disease and exaggerated by lack of distention. Less likely, gallbladder wall thickening could indicate acute cholecystitis, and bladder are nuclear scan should be considered if there is high clinical suspicion Ascites Left pleural effusion Mildly increased renal echogenicity, could indicate medical renal disease Note inability to visualize the abdominal aorta trend labs will follow Sumit Fernandez Apr 07, 2019 12:29
--- NOTE | 2019-04-07 12:32 | GI Progress Note ---
Assessment/Plan Problems: (1) Abnormal LFTs ICD Codes: R94.5 - Abnormal results of liver function studies SNOMED: 947569860 (2) Abdominal pain ICD Codes: R10.9 - Unspecified abdominal pain SNOMED: 67569485 (3) Hepatic encephalopathy ICD Codes: K72.90 - Hepatic failure, unspecified without coma SNOMED: 26851330 (4) Liver cirrhosis ICD Codes: K74.60 - Unspecified cirrhosis of liver SNOMED: 99681694 Status: stable, progressing Status Narrative Discussed with Dr. De La Torre. Assessment/Plan Nonalcoholic cirrhosis Abdominal ultrasound reviewed noted with ascites Occult blood stool was negative Okay to advance diet as tolerated Follow-up hepatitis panel Trend LFTs, ammonia levels Lactulose + Xifaxan PPI paracentesis if needed PRN transfusions The patient was seen and examined at bedside and all new and available data was reviewed in the patients chart. I agree with the above findings, impression and plan. (Patient seen earlier today. Signature stamp does not reflect patient encounter time.). - Jose De La Torre MD Subjective Gastrointestinal/Abdominal: Reports: no symptoms Objective Last 24 Hour Vital Signs Date Time Temp Pulse Resp B/P (MAP) Pulse Ox O2 Delivery O2 Flow Rate FiO2 04/07/19 09:00 Room Air 04/07/19 08:00 98.9 82 18 102/61 (75) 97 04/07/19 04:00 98.2 92 20 114/61 (78) 96 04/07/19 00:13 98.5 81 19 133/71 (91) 97 04/06/19 20:55 Room Air 04/06/19 20:42 98.0 80 18 118/69 (85) 100 04/06/19 16:00 98.4 85 18 123/70 (87) 99 Intake and Output 04/06/19 04/07/19 19:00 07:00 Intake Total 1052 ml 600 ml Balance 1052 ml 600 ml Intake Oral 500 ml IV Total 552 ml 600 ml # Voids 2 # Bowel Movements 2 2 Laboratory Tests Test 04/07/19 00:45 04/07/19 01:15 04/07/19 05:39 Stool Occult Blood Negative (NEGATIVE) Urine Eosinophils None seen (NONE SEEN) White Blood Count 6.9 K/UL (4.8-10.8) Red Blood Count 3.60 M/UL (4.70-6.10) L Hemoglobin 11.1 G/DL (14.2-18.0) L Hematocrit 32.9 % (42.0-52.0) L Mean Corpuscular Volume 92 FL (80-99) Mean Corpuscular Hemoglobin 30.8 PG (27.0-31.0) Mean Corpuscular Hemoglobin Concent 33.6 G/DL (32.0-36.0) Red Cell Distribution Width 15.1 % (11.6-14.8) H Platelet Count 159 K/UL (150-450) Mean Platelet Volume 7.7 FL (6.5-10.1) Neutrophils (%) (Auto) 51.7 % (45.0-75.0) Lymphocytes (%) (Auto) 29.9 % (20.0-45.0) Monocytes (%) (Auto) 11.1 % (1.0-10.0) H Eosinophils (%) (Auto) 5.1 % (0.0-3.0) H Basophils (%) (Auto) 2.2 % (0.0-2.0) H Reticulocyte Count 0.9 % (0.5-2.0) Prothrombin Time 15.4 SEC (9.30-11.50) H Prothromb Time International Ratio 1.5 (0.9-1.1) H Activated Partial Thromboplast Time 37 SEC (23-33) H Sodium Level 140 MMOL/L (136-145) Potassium Level 3.4 MMOL/L (3.5-5.1) L Chloride Level 110 MMOL/L (98-107) H Carbon Dioxide Level 20 MMOL/L (21-32) L Anion Gap 10 mmol/L (5-15) Blood Urea Nitrogen 15 mg/dL (7-18) Creatinine 1.8 MG/DL (0.55-1.30) H Estimat Glomerular Filtration Rate mL/min (>60) Glucose Level 120 MG/DL (74-106) H Uric Acid 8.1 MG/DL (2.6-7.2) H Calcium Level 8.8 MG/DL (8.5-10.1) Phosphorus Level 2.9 MG/DL (2.5-4.9) Magnesium Level 1.4 MG/DL (1.8-2.4) L Iron Level 59 ug/dL (50-175) Total Iron Binding Capacity 100 ug/dL (250-450) L Percent Iron Saturation 59 % (15-50) H Unsaturated Iron Binding 41 ug/dL (112-346) L Ferritin 302 NG/ML (8-388) Total Bilirubin 1.9 MG/DL (0.2-1.0) H Direct Bilirubin 0.5 MG/DL (0.0-0.3) H Gamma Glutamyl Transpeptidase 35 U/L (5-85) Aspartate Amino Transf (AST/SGOT) 33 U/L (15-37) Alanine Aminotransferase (ALT/SGPT) 11 U/L (12-78) L Alkaline Phosphatase 77 U/L (46-116) Ammonia 64 umol/L (11-32) H C-Reactive Protein, Quantitative 4.7 mg/dL (0.00-0.90) H Pro-B-Type Natriuretic Peptide 1760 pg/mL (0-125) H Total Protein 6.6 G/DL (6.4-8.2) Albumin 1.9 G/DL (3.4-5.0) L Globulin 4.7 g/dL Albumin/Globulin Ratio 0.4 (1.0-2.7) L Carcinoembryonic Antigen Pending Vitamin B12 Level 834 PG/ML (193-986) Folate 9.7 NG/ML (8.6-58.9) Thyroid Stimulating Hormone (TSH) 2.003 uiU/mL (0.358-3.740) Free Thyroxine 1.69 NG/DL (0.76-1.46) H Hepatitis A IgM Antibody Pending Hepatitis B Surface Antigen Pending Hepatitis B Core IgM Antibody Pending Hepatitis C Antibody Pending Height (Feet): 6 Height (Inches): 0.00 Weight (Pounds): 180 General Appearance: no apparent distress Cardiovascular: normal rate Respiratory/Chest: normal breath sounds, no respiratory distress Abdominal Exam: normal bowel sounds, non tender, soft Extremities: normal range of motion, non-tender Stefany Breaux NP Apr 07, 2019 12:32
--- NOTE | 2019-04-07 12:33 | Nephrology Progress Note ---
Assessment/Plan Problem List: (1) CKD (chronic kidney disease) (2) Hepatic encephalopathy (3) CAD (coronary artery disease) (4) CVA (cerebral vascular accident) Assessment Renal failure- Likely chronic and multifactorial ( DM, HTN , Cirrhosui Hepatic encephalopathy Liver Cirrhosis CAD s/p CVAs Plan lactulose po slow hydrate cultures urine studies St eval Per GI Subjective ROS Limited/Unobtainable: No Constitutional: Reports: malaise, weakness Objective Objective Last 24 Hour Vital Signs Date Time Temp Pulse Resp B/P (MAP) Pulse Ox O2 Delivery O2 Flow Rate FiO2 04/07/19 09:00 Room Air 04/07/19 08:00 98.9 82 18 102/61 (75) 97 04/07/19 04:00 98.2 92 20 114/61 (78) 96 04/07/19 00:13 98.5 81 19 133/71 (91) 97 04/06/19 20:55 Room Air 04/06/19 20:42 98.0 80 18 118/69 (85) 100 04/06/19 16:00 98.4 85 18 123/70 (87) 99 Intake and Output 04/06/19 04/07/19 19:00 07:00 Intake Total 1052 ml 600 ml Balance 1052 ml 600 ml Intake Oral 500 ml IV Total 552 ml 600 ml # Voids 2 # Bowel Movements 2 2 Laboratory Tests 04/07/19 00:45: Stool Occult Blood Negative 04/07/19 01:15: Urine Eosinophils None seen 04/07/19 05:39: White Blood Count 6.9, Red Blood Count 3.60L, Hemoglobin 11.1L, Hematocrit 32.9L , Mean Corpuscular Volume 92, Mean Corpuscular Hemoglobin 30.8, Mean Corpuscular Hemoglobin Concent 33.6, Red Cell Distribution Width 15.1H, Platelet Count 159, Mean Platelet Volume 7.7, Neutrophils (%) (Auto) 51.7, Lymphocytes (%) (Auto) 29.9, Monocytes (%) (Auto) 11.1H, Eosinophils (%) (Auto) 5.1H, Basophils (%) (Auto) 2.2H, Reticulocyte Count 0.9, Prothrombin Time 15.4H , Prothromb Time International Ratio 1.5H, Activated Partial Thromboplast Time 37H, Sodium Level 140, Potassium Level 3.4L, Chloride Level 110H, Carbon Dioxide Level 20L, Anion Gap 10, Blood Urea Nitrogen 15, Creatinine 1.8H, Estimat Glomerular Filtration Rate , Glucose Level 120H, Uric Acid 8.1H, Calcium Level 8.8, Phosphorus Level 2.9, Magnesium Level 1.4L, Iron Level 59, Total Iron Binding Capacity 100L, Percent Iron Saturation 59H, Unsaturated Iron Binding 41L, Ferritin 302, Total Bilirubin 1.9H, Direct Bilirubin 0.5H, Gamma Glutamyl Transpeptidase 35, Aspartate Amino Transf (AST/SGOT) 33, Alanine Aminotransferase (ALT/SGPT) 11L, Alkaline Phosphatase 77, Ammonia 64H, C- Reactive Protein, Quantitative 4.7H, Pro-B-Type Natriuretic Peptide 1760H, Total Protein 6.6, Albumin 1.9L, Globulin 4.7, Albumin/Globulin Ratio 0.4L, Carcinoembryonic Antigen [Pending], Vitamin B12 Level 834, Folate 9.7, Thyroid Stimulating Hormone (TSH) 2.003, Free Thyroxine 1.69H, Hepatitis A IgM Antibody [Pending], Hepatitis B Surface Antigen [Pending], Hepatitis B Core IgM Antibody [Pending], Hepatitis C Antibody [Pending] Height (Feet): 6 Height (Inches): 0.00 Weight (Pounds): 180 General Appearance: confused Respiratory/Chest: decreased breath sounds Abdomen: distended Objective LE edema Phil Enriquez MD Apr 07, 2019 12:33
[2019-04-07 16:00] VITALS: BP 114/75
[2019-04-07 20:00] VITALS: BP 102/65
--- NOTE | 2019-04-07 20:18 | General Progress Note ---
Assessment/Plan Problem List: (1) Liver cirrhosis ICD Codes: K74.60 - Unspecified cirrhosis of liver SNOMED: 73514573 (2) Hepatic encephalopathy ICD Codes: K72.90 - Hepatic failure, unspecified without coma SNOMED: 71981714 (3) CKD (chronic kidney disease) ICD Codes: N18.9 - Chronic kidney disease, unspecified SNOMED: 825289131 (4) CAD (coronary artery disease) ICD Codes: I25.10 - Atherosclerotic heart disease of [place] coronary artery without angina pectoris SNOMED: 29214008 (5) Leg edema ICD Codes: R60.0 - Localized edema SNOMED: 566087092 (6) Abdominal pain ICD Codes: R10.9 - Unspecified abdominal pain SNOMED: 04086122 (7) Abnormal LFTs ICD Codes: R94.5 - Abnormal results of liver function studies SNOMED: 781850190 Status: stable, progressing Assessment/Plan: check ammonia level hepatic encephalopathy cad ams edema r/o hepatorenal syndrome Subjective ROS Limited/Unobtainable: Yes Allergies: Coded Allergies: No Known Allergies (Unverified , 04/05/19) Objective Last 24 Hour Vital Signs Date Time Temp Pulse Resp B/P (MAP) Pulse Ox O2 Delivery O2 Flow Rate FiO2 04/07/19 16:00 97.9 80 17 114/75 (88) 98 04/07/19 12:00 97.8 83 18 109/70 (83) 96 04/07/19 09:00 Room Air 04/07/19 08:00 98.9 82 18 102/61 (75) 97 04/07/19 04:00 98.2 92 20 114/61 (78) 96 04/07/19 00:13 98.5 81 19 133/71 (91) 97 04/06/19 20:55 Room Air 04/06/19 20:42 98.0 80 18 118/69 (85) 100 Intake and Output 04/06/19 04/07/19 19:00 07:00 Intake Total 1052 ml 600 ml Balance 1052 ml 600 ml Intake Oral 500 ml IV Total 552 ml 600 ml # Voids 2 # Bowel Movements 2 2 Laboratory Tests 04/07/19 00:45: Stool Occult Blood Negative 04/07/19 01:15: Urine Eosinophils None seen 04/07/19 05:39: White Blood Count 6.9, Red Blood Count 3.60L, Hemoglobin 11.1L, Hematocrit 32.9L , Mean Corpuscular Volume 92, Mean Corpuscular Hemoglobin 30.8, Mean Corpuscular Hemoglobin Concent 33.6, Red Cell Distribution Width 15.1H, Platelet Count 159, Mean Platelet Volume 7.7, Neutrophils (%) (Auto) 51.7, Lymphocytes (%) (Auto) 29.9, Monocytes (%) (Auto) 11.1H, Eosinophils (%) (Auto) 5.1H, Basophils (%) (Auto) 2.2H, Reticulocyte Count 0.9, Prothrombin Time 15.4H , Prothromb Time International Ratio 1.5H, Activated Partial Thromboplast Time 37H, Sodium Level 140, Potassium Level 3.4L, Chloride Level 110H, Carbon Dioxide Level 20L, Anion Gap 10, Blood Urea Nitrogen 15, Creatinine 1.8H, Estimat Glomerular Filtration Rate , Glucose Level 120H, Uric Acid 8.1H, Calcium Level 8.8, Phosphorus Level 2.9, Magnesium Level 1.4L, Iron Level 59, Total Iron Binding Capacity 100L, Percent Iron Saturation 59H, Unsaturated Iron Binding 41L, Ferritin 302, Total Bilirubin 1.9H, Direct Bilirubin 0.5H, Gamma Glutamyl Transpeptidase 35, Aspartate Amino Transf (AST/SGOT) 33, Alanine Aminotransferase (ALT/SGPT) 11L, Alkaline Phosphatase 77, Ammonia 64H, C- Reactive Protein, Quantitative 4.7H, Pro-B-Type Natriuretic Peptide 1760H, Total Protein 6.6, Albumin 1.9L, Globulin 4.7, Albumin/Globulin Ratio 0.4L, Carcinoembryonic Antigen [Pending], Vitamin B12 Level 834, Folate 9.7, Thyroid Stimulating Hormone (TSH) 2.003, Free Thyroxine 1.69H, Hepatitis A IgM Antibody [Pending], Hepatitis B Surface Antigen [Pending], Hepatitis B Core IgM Antibody [Pending], Hepatitis C Antibody [Pending] Height (Feet): 6 Height (Inches): 0.00 Weight (Pounds): 180 Cardiovascular: normal rate Respiratory/Chest: lungs clear Alta Kelley MD Apr 07, 2019 20:18
[2019-04-08] VITALS: BP 113/62
[2019-04-08 04:00] VITALS: BP 99/48
[2019-04-08 06:42] LABS: BASOPHILS % (AUTO) 1.4 % (0.0-2.0); EOSINOPHILS % (AUTO) 4.3 % (0.0-3.0); HEMATOCRIT 32.7 % (42.0-52.0); HEMOGLOBIN 10.8 G/DL (14.2-18.0); LYMPHOCYTES % (AUTO) 26.9 % (20.0-45.0); MEAN CORPUSCULAR VOLUME 93 FL (80-99); MONOCYTES % (AUTO) 13.8 % (1.0-10.0); NEUTROPHILS % (AUTO) 53.6 % (45.0-75.0); PLATELET COUNT 147 K/UL (150-450); RED BLOOD COUNT 3.52 M/UL (4.70-6.10); RED CELL DISTRIBUTION WIDTH 14.6 % (11.6-14.8); WHITE BLOOD COUNT 8.1 K/UL (4.8-10.8)
[2019-04-08 06:56] LABS: AMMONIA 56 umol/L (11-32)
[2019-04-08 07:03] LABS: ALANINE AMINOTRANSFERASE 13 U/L (12-78); ALBUMIN 1.8 G/DL (3.4-5.0); ALBUMIN/GLOBULIN RATIO 0.4 (1.0-2.7); ALKALINE PHOSPHATASE 98 U/L (46-116); ANION GAP 12 mmol/L (5-15); ASPARTATE AMINO TRANSFERASE 35 U/L (15-37); BILIRUBIN,TOTAL 1.6 MG/DL (0.2-1.0); BLOOD UREA NITROGEN 13 mg/dL (7-18); CALCIUM 8.8 MG/DL (8.5-10.1); CARBON DIOXIDE 17 MMOL/L (21-32); CHLORIDE 110 MMOL/L (98-107); CREATININE 1.9 MG/DL (0.55-1.30); PHOSPHORUS 2.7 MG/DL (2.5-4.9); POTASSIUM 4.2 MMOL/L (3.5-5.1); SODIUM 139 MMOL/L (136-145)
[2019-04-08 07:05] LABS: BILIRUBIN,DIRECT 0.4 MG/DL (0.0-0.3)
--- NOTE | 2019-04-08 07:57 | CDS Physician Query ---
Clarification is required for compliance, coding accuracy, and to reflect severity of illness for this patient Dear Phil Hernandez MD Date: 04/08/2019 [facility] Program Director/CDS Name: Moises Teran Please select the most appropriate option: Pt has cirrhosis, hepatic encephalopathy Labs: 2.3--->1.8 [] Protein/Calorie Malnutrition [] Mild [] Moderate [*] Severe [] Hypoalbuminemia [] Cachexia [] Underweight [] Intestinal malabsorption [] Other [] Unable to determine [] Not Applicable Present on Admission: [*] Yes [] No [] Clinically Undetermined Physician signature Date Please also document in your Progress Notes and/or Discharge Summary and indicate if the condition was present on admission. MTDD
[2019-04-08 08:00] VITALS: BP 137/72
[2019-04-08] MEDS: Docusate 100mg cap ORAL SCH (08:33)
[2019-04-08] MEDS: Lactulose 20gm/30ml UDC ORAL SCH ×4 (08:33→17:10)
[2019-04-08] MEDS: Aspirin Baby 81mg ORAL SCH (08:33)
[2019-04-08] MEDS ORDERED: 1/2 NS 1000ml IV ONE (09:46)
--- NOTE | 2019-04-08 09:49 | General Progress Note ---
Assessment/Plan Status: stable, progressing Assessment/Plan: (1) Abnormal LFTs ICD Codes: R94.5 - Abnormal results of liver function studies SNOMED: 569264196 (2) Abdominal pain ICD Codes: R10.9 - Unspecified abdominal pain SNOMED: 11780600 (3) Hepatic encephalopathy ICD Codes: K72.90 - Hepatic failure, unspecified without coma SNOMED: 17804602 (4) Liver cirrhosis ICD Codes: K74.60 - Unspecified cirrhosis of liver SNOMED: 33518794 Status: stable, progressing . Assessment/Plan Nonalcoholic cirrhosis Abdominal ultrasound reviewed noted with ascites Occult blood stool was negative Okay to advance diet as tolerated Follow-up hepatitis panel Trend LFTs, ammonia levels>>improving Lactulose + Xifaxan PPI paracentesis if needed PRN transfusions needs out patient fu for GI procedures Subjective ROS Limited/Unobtainable: Yes Allergies: Coded Allergies: No Known Allergies (Unverified , 04/05/19) Subjective eats well had BM Objective Last 24 Hour Vital Signs Date Time Temp Pulse Resp B/P (MAP) Pulse Ox O2 Delivery O2 Flow Rate FiO2 04/08/19 08:00 98.3 100 18 137/72 (93) 99 04/08/19 04:00 98.7 89 20 99/48 (65) 99 04/08/19 00:00 99.7 81 20 113/62 (79) 100 04/07/19 21:00 Room Air 04/07/19 20:00 98.2 87 20 102/65 (77) 96 04/07/19 16:00 97.9 80 17 114/75 (88) 98 04/07/19 12:00 97.8 83 18 109/70 (83) 96 Intake and Output 04/07/19 04/08/19 18:59 06:59 Intake Total 1550 ml 550 ml Output Total 300 ml Balance 1550 ml 250 ml IV Total 700 ml 550 ml Other 850 ml Output Urine Total 300 ml # Voids 1 # Bowel Movements 1 Laboratory Tests 04/08/19 05:25: Urine Eosinophils None seen 04/08/19 06:19: White Blood Count 8.1, Red Blood Count 3.52L, Hemoglobin 10.8L, Hematocrit 32.7L , Mean Corpuscular Volume 93, Mean Corpuscular Hemoglobin 30.7, Mean Corpuscular Hemoglobin Concent 33.0, Red Cell Distribution Width 14.6, Platelet Count 147L, Mean Platelet Volume 7.4, Neutrophils (%) (Auto) 53.6, Lymphocytes ( %) (Auto) 26.9, Monocytes (%) (Auto) 13.8H, Eosinophils (%) (Auto) 4.3H, Basophils (%) (Auto) 1.4, Sodium Level 139, Potassium Level 4.2, Chloride Level 110H, Carbon Dioxide Level 17L, Anion Gap 12, Blood Urea Nitrogen 13, Creatinine 1.9H, Estimat Glomerular Filtration Rate , Glucose Level 158H, Uric Acid 8.0H, Calcium Level 8.8, Phosphorus Level 2.7, Magnesium Level 2.1, Total Bilirubin 1.6H, Direct Bilirubin 0.4H, Aspartate Amino Transf (AST/SGOT) 35, Alanine Aminotransferase (ALT/SGPT) 13, Alkaline Phosphatase 98, Ammonia 56H, C- Reactive Protein, Quantitative 4.0H, Pro-B-Type Natriuretic Peptide 1193H, Total Protein 6.7, Albumin 1.8L, Globulin 4.9, Albumin/Globulin Ratio 0.4L Height (Feet): 6 Height (Inches): 0.00 Weight (Pounds): 180 General Appearance: alert EENT: normal ENT inspection Neck: supple Cardiovascular: normal rate Respiratory/Chest: decreased breath sounds Abdomen: normal bowel sounds, non tender, soft Extremities: non-tender Jose De La Torre MD Apr 08, 2019 09:49
--- NOTE | 2019-04-08 09:50 | Surgery Progress Note ---
Surgery Progress Note Subjective Additional Comments no acute events. comfortable. at bedside. states he is doing much better edema improved. Objective Last 24 Hour Vital Signs Date Time Temp Pulse Resp B/P (MAP) Pulse Ox O2 Delivery O2 Flow Rate FiO2 04/08/19 08:00 98.3 100 18 137/72 (93) 99 04/08/19 04:00 98.7 89 20 99/48 (65) 99 04/08/19 00:00 99.7 81 20 113/62 (79) 100 04/07/19 21:00 Room Air 04/07/19 20:00 98.2 87 20 102/65 (77) 96 04/07/19 16:00 97.9 80 17 114/75 (88) 98 04/07/19 12:00 97.8 83 18 109/70 (83) 96 I&O Intake and Output 04/07/19 04/08/19 18:59 06:59 Intake Total 1550 ml 550 ml Output Total 300 ml Balance 1550 ml 250 ml IV Total 700 ml 550 ml Other 850 ml Output Urine Total 300 ml # Voids 1 # Bowel Movements 1 Cardiovascular: RSR Respiratory: clear Abdomen: soft, flat Extremities: edema, no cyanosis Laboratory Tests Test 04/08/19 05:25 04/08/19 06:19 Urine Eosinophils None seen (NONE SEEN) White Blood Count 8.1 K/UL (4.8-10.8) Red Blood Count 3.52 M/UL (4.70-6.10) L Hemoglobin 10.8 G/DL (14.2-18.0) L Hematocrit 32.7 % (42.0-52.0) L Mean Corpuscular Volume 93 FL (80-99) Mean Corpuscular Hemoglobin 30.7 PG (27.0-31.0) Mean Corpuscular Hemoglobin Concent 33.0 G/DL (32.0-36.0) Red Cell Distribution Width 14.6 % (11.6-14.8) Platelet Count 147 K/UL (150-450) L Mean Platelet Volume 7.4 FL (6.5-10.1) Neutrophils (%) (Auto) 53.6 % (45.0-75.0) Lymphocytes (%) (Auto) 26.9 % (20.0-45.0) Monocytes (%) (Auto) 13.8 % (1.0-10.0) H Eosinophils (%) (Auto) 4.3 % (0.0-3.0) H Basophils (%) (Auto) 1.4 % (0.0-2.0) Sodium Level 139 MMOL/L (136-145) Potassium Level 4.2 MMOL/L (3.5-5.1) Chloride Level 110 MMOL/L (98-107) H Carbon Dioxide Level 17 MMOL/L (21-32) L Anion Gap 12 mmol/L (5-15) Blood Urea Nitrogen 13 mg/dL (7-18) Creatinine 1.9 MG/DL (0.55-1.30) H Estimat Glomerular Filtration Rate mL/min (>60) Glucose Level 158 MG/DL (74-106) H Uric Acid 8.0 MG/DL (2.6-7.2) H Calcium Level 8.8 MG/DL (8.5-10.1) Phosphorus Level 2.7 MG/DL (2.5-4.9) Magnesium Level 2.1 MG/DL (1.8-2.4) Total Bilirubin 1.6 MG/DL (0.2-1.0) H Direct Bilirubin 0.4 MG/DL (0.0-0.3) H Aspartate Amino Transf (AST/SGOT) 35 U/L (15-37) Alanine Aminotransferase (ALT/SGPT) 13 U/L (12-78) Alkaline Phosphatase 98 U/L (46-116) Ammonia 56 umol/L (11-32) H C-Reactive Protein, Quantitative 4.0 mg/dL (0.00-0.90) H Pro-B-Type Natriuretic Peptide 1193 pg/mL (0-125) H Total Protein 6.7 G/DL (6.4-8.2) Albumin 1.8 G/DL (3.4-5.0) L Globulin 4.9 g/dL Albumin/Globulin Ratio 0.4 (1.0-2.7) L Plan Problems: (1) Leg edema Assessment & Plan: possible cardiac related venous duplex noted no dvt (2) Abdominal pain Assessment & Plan: due to ascites. hx of prior paracentesis no surgical abdomen soft, distended, fluid filled o n/v/f/c okay for diet will follow with recs thank you (3) Abnormal LFTs Assessment & Plan: elevated t bili. abnormal lft's not obstructive in nature no acute intervention planned Impression: Evidence of hepatic cirrhosis, with coarsened atrophic nodular liver Probable cholelithiasis. Gallbladder wall thickening is noted, probably secondary to the hemodynamic derangements related to the hepatic disease and exaggerated by lack of distention. Less likely, gallbladder wall thickening could indicate acute cholecystitis, and bladder are nuclear scan should be considered if there is high clinical suspicion Ascites Left pleural effusion Mildly increased renal echogenicity, could indicate medical renal disease Note inability to visualize the abdominal aorta trend labs will follow Sumit Fernandez Apr 08, 2019 09:50
--- NOTE | 2019-04-08 11:14 | Diagnostic Imaging Report ---
APPROVED REPORT CPT Code: 51857 Present Symptoms Lower Extremity Edema: BILATERAL: Imaging reveals a patent deep venous system bilaterally. There is no evidence of thrombus within the femoral, popliteal or tibial segments. The greater saphenous veins are also within normal limits. Doppler indicates normal spontaneous flow within these segments.
[2019-04-08 12:00] VITALS: BP 130/69
--- NOTE | 2019-04-08 12:36 | Nephrology Progress Note ---
Assessment/Plan Problem List: (1) CKD (chronic kidney disease) (2) Hepatic encephalopathy (3) CAD (coronary artery disease) (4) CVA (cerebral vascular accident) Assessment Renal failure- Likely chronic and multifactorial ( DM, HTN , Cirrhosui Hepatic encephalopathy Liver Cirrhosis CAD s/p CVAs Plan lactulose po slow hydrate cultures urine studies St eval Per GI Subjective ROS Limited/Unobtainable: No Constitutional: Reports: other - much more alert Objective Objective Last 24 Hour Vital Signs Date Time Temp Pulse Resp B/P (MAP) Pulse Ox O2 Delivery O2 Flow Rate FiO2 04/08/19 09:00 Room Air 04/08/19 08:00 98.3 100 18 137/72 (93) 99 04/08/19 04:00 98.7 89 20 99/48 (65) 99 04/08/19 00:00 99.7 81 20 113/62 (79) 100 04/07/19 21:00 Room Air 04/07/19 20:00 98.2 87 20 102/65 (77) 96 04/07/19 16:00 97.9 80 17 114/75 (88) 98 Intake and Output 04/07/19 04/08/19 19:00 07:00 Intake Total 1600 ml 500 ml Output Total 300 ml Balance 1600 ml 200 ml IV Total 750 ml 500 ml Other 850 ml Output Urine Total 300 ml # Voids 1 # Bowel Movements 1 Laboratory Tests 04/08/19 05:25: Urine Eosinophils None seen 04/08/19 06:19: White Blood Count 8.1, Red Blood Count 3.52L, Hemoglobin 10.8L, Hematocrit 32.7L , Mean Corpuscular Volume 93, Mean Corpuscular Hemoglobin 30.7, Mean Corpuscular Hemoglobin Concent 33.0, Red Cell Distribution Width 14.6, Platelet Count 147L, Mean Platelet Volume 7.4, Neutrophils (%) (Auto) 53.6, Lymphocytes ( %) (Auto) 26.9, Monocytes (%) (Auto) 13.8H, Eosinophils (%) (Auto) 4.3H, Basophils (%) (Auto) 1.4, Sodium Level 139, Potassium Level 4.2, Chloride Level 110H, Carbon Dioxide Level 17L, Anion Gap 12, Blood Urea Nitrogen 13, Creatinine 1.9H, Estimat Glomerular Filtration Rate , Glucose Level 158H, Uric Acid 8.0H, Calcium Level 8.8, Phosphorus Level 2.7, Magnesium Level 2.1, Total Bilirubin 1.6H, Direct Bilirubin 0.4H, Aspartate Amino Transf (AST/SGOT) 35, Alanine Aminotransferase (ALT/SGPT) 13, Alkaline Phosphatase 98, Ammonia 56H, C- Reactive Protein, Quantitative 4.0H, Pro-B-Type Natriuretic Peptide 1193H, Total Protein 6.7, Albumin 1.8L, Globulin 4.9, Albumin/Globulin Ratio 0.4L Height (Feet): 6 Height (Inches): 0.00 Weight (Pounds): 180 General Appearance: no apparent distress Respiratory/Chest: decreased breath sounds Abdomen: distended Objective LE edema Phil Enriquez MD Apr 08, 2019 12:36
[2019-04-08 16:00] VITALS: BP 109/72
--- NOTE | 2019-04-08 16:28 | Cardiology Report ---
APPROVED REPORT EKG Measurement Heart [id number] Sinus rhythm with 1st degree AV block with premature atrial complexes Nonspecific T wave abnormality Prolonged QT Abnormal ECG
[2019-04-08 18:47] LABS: APPEARANCE,URINE CLEAR; BILIRUBIN, URINE NEGATIVE (NEGATIVE); COLOR,URINE AMBER; GLUCOSE, URINE (UA) NEGATIVE (NEGATIVE); KETONES,URINE NEGATIVE (NEGATIVE); LEUKOCYTE ESTERASE ,URINE NEGATIVE (NEGATIVE); NITRITE,URINE NEGATIVE (NEGATIVE); PH,URINE 5 (4.5-8.0); PROTEIN,URINE NEGATIVE (NEGATIVE); UROBILINOGEN,URINE NORMAL MG/DL (0.0-1.0)
[2019-04-08 20:00] VITALS: BP 106/66
--- NOTE | 2019-04-08 21:07 | General Progress Note ---
Assessment/Plan Problem List: (1) Liver cirrhosis ICD Codes: K74.60 - Unspecified cirrhosis of liver SNOMED: 42603572 (2) Hepatic encephalopathy ICD Codes: K72.90 - Hepatic failure, unspecified without coma SNOMED: 87715172 (3) CKD (chronic kidney disease) ICD Codes: N18.9 - Chronic kidney disease, unspecified SNOMED: 065567924 (4) CAD (coronary artery disease) ICD Codes: I25.10 - Atherosclerotic heart disease of [place] coronary artery without angina pectoris SNOMED: 54869912 (5) Leg edema ICD Codes: R60.0 - Localized edema SNOMED: 666606610 (6) Abdominal pain ICD Codes: R10.9 - Unspecified abdominal pain SNOMED: 46951930 (7) Abnormal LFTs ICD Codes: R94.5 - Abnormal results of liver function studies SNOMED: 450463985 Status: stable, progressing Assessment/Plan: afebrile cri no acute events reviewed chart poor prognosis hepatic encephalopathy cad ams edema r/o hepatorenal syndrome Subjective ROS Limited/Unobtainable: Yes Allergies: Coded Allergies: No Known Allergies (Unverified , 04/05/19) Objective Last 24 Hour Vital Signs Date Time Temp Pulse Resp B/P (MAP) Pulse Ox O2 Delivery O2 Flow Rate FiO2 04/08/19 16:00 98.7 103 19 109/72 (84) 98 04/08/19 12:00 98.0 99 18 130/69 (89) 98 04/08/19 09:00 Room Air 04/08/19 08:00 98.3 100 18 137/72 (93) 99 04/08/19 04:00 98.7 89 20 99/48 (65) 99 04/08/19 00:00 99.7 81 20 113/62 (79) 100 Intake and Output 04/07/19 04/08/19 19:00 07:00 Intake Total 1600 ml 500 ml Output Total 300 ml Balance 1600 ml 200 ml IV Total 750 ml 500 ml Other 850 ml Output Urine Total 300 ml # Voids 1 # Bowel Movements 1 Laboratory Tests 04/08/19 05:25: Urine Eosinophils None seen 04/08/19 06:19: White Blood Count 8.1, Red Blood Count 3.52L, Hemoglobin 10.8L, Hematocrit 32.7L , Mean Corpuscular Volume 93, Mean Corpuscular Hemoglobin 30.7, Mean Corpuscular Hemoglobin Concent 33.0, Red Cell Distribution Width 14.6, Platelet Count 147L, Mean Platelet Volume 7.4, Neutrophils (%) (Auto) 53.6, Lymphocytes ( %) (Auto) 26.9, Monocytes (%) (Auto) 13.8H, Eosinophils (%) (Auto) 4.3H, Basophils (%) (Auto) 1.4, Sodium Level 139, Potassium Level 4.2, Chloride Level 110H, Carbon Dioxide Level 17L, Anion Gap 12, Blood Urea Nitrogen 13, Creatinine 1.9H, Estimat Glomerular Filtration Rate , Glucose Level 158H, Uric Acid 8.0H, Calcium Level 8.8, Phosphorus Level 2.7, Magnesium Level 2.1, Total Bilirubin 1.6H, Direct Bilirubin 0.4H, Aspartate Amino Transf (AST/SGOT) 35, Alanine Aminotransferase (ALT/SGPT) 13, Alkaline Phosphatase 98, Ammonia 56H, C- Reactive Protein, Quantitative 4.0H, Pro-B-Type Natriuretic Peptide 1193H, Total Protein 6.7, Albumin 1.8L, Globulin 4.9, Albumin/Globulin Ratio 0.4L 04/08/19 18:20: Urine Color Genet, Urine Appearance Clear, Urine pH 5, Urine Specific [place] 1.020, Urine Protein Negative, Urine Glucose (UA) Negative, Urine Ketones Negative, Urine Blood Negative, Urine Nitrite Negative, Urine Bilirubin Negative , Urine Ictotest Negative, Urine Urobilinogen Normal, Urine Leukocyte Esterase Negative, Urine RBC 0, Urine WBC 0-2, Urine Squamous Epithelial Cells None, Urine Bacteria Occasional Height (Feet): 6 Height (Inches): 0.00 Weight (Pounds): 180 Cardiovascular: normal rate Respiratory/Chest: lungs clear Abdomen: soft Alta Kelley MD Apr 08, 2019 21:07
[2019-04-09] VITALS: BP 102/66
[2019-04-09 04:00] VITALS: BP 101/63
--- NOTE | 2019-04-09 06:51 | General Progress Note ---
Assessment/Plan Status: stable, progressing Assessment/Plan: (1) Abnormal LFTs ICD Codes: R94.5 - Abnormal results of liver function studies SNOMED: 736903994 (2) Abdominal pain ICD Codes: R10.9 - Unspecified abdominal pain SNOMED: 43713392 (3) Hepatic encephalopathy ICD Codes: K72.90 - Hepatic failure, unspecified without coma SNOMED: 82802058 (4) Liver cirrhosis ICD Codes: K74.60 - Unspecified cirrhosis of liver SNOMED: 44673346 Status: stable, progressing . Assessment/Plan Nonalcoholic cirrhosis Abdominal ultrasound reviewed noted with ascites Occult blood stool was negative Okay to advance diet as tolerated Follow-up hepatitis panel Trend LFTs, ammonia levels>>improving Lactulose + Xifaxan PPI paracentesis if needed PRN transfusions needs out patient fu for GI procedures Subjective ROS Limited/Unobtainable: Yes Allergies: Coded Allergies: No Known Allergies (Unverified , 04/05/19) Subjective eats well had BM Objective Last 24 Hour Vital Signs Date Time Temp Pulse Resp B/P (MAP) Pulse Ox O2 Delivery O2 Flow Rate FiO2 04/09/19 04:00 98.5 105 20 101/63 (76) 98 04/09/19 00:00 98.3 101 20 102/66 (78) 99 04/08/19 21:00 Room Air 04/08/19 20:00 98.6 98 20 106/66 (79) 99 04/08/19 16:00 98.7 103 19 109/72 (84) 98 04/08/19 12:00 98.0 99 18 130/69 (89) 98 04/08/19 09:00 Room Air 04/08/19 08:00 98.3 100 18 137/72 (93) 99 Intake and Output 04/08/19 04/09/19 19:00 07:00 Intake Total 1500 ml Output Total 300 ml Balance 1500 ml -300 ml IV Total 500 ml Other 1000 ml Stool Total 300 ml # Voids 2 # Bowel Movements 2 Laboratory Tests 04/08/19 18:20: Urine Color Genet, Urine Appearance Clear, Urine pH 5, Urine Specific [place] 1.020, Urine Protein Negative, Urine Glucose (UA) Negative, Urine Ketones Negative, Urine Blood Negative, Urine Nitrite Negative, Urine Bilirubin Negative , Urine Ictotest Negative, Urine Urobilinogen Normal, Urine Leukocyte Esterase Negative, Urine RBC 0, Urine WBC 0-2, Urine Squamous Epithelial Cells None, Urine Bacteria Occasional Height (Feet): 6 Height (Inches): 0.00 Weight (Pounds): 180 General Appearance: alert EENT: PERRL/EOMI Neck: supple Cardiovascular: normal rate Respiratory/Chest: decreased breath sounds Abdomen: normal bowel sounds, non tender, soft Extremities: non-tender Jose De La Torre MD Apr 09, 2019 06:51
[2019-04-09 07:38] LABS: BASOPHILS % (AUTO) 1.5 % (0.0-2.0); EOSINOPHILS % (AUTO) 5.5 % (0.0-3.0); HEMATOCRIT 30.5 % (42.0-52.0); HEMOGLOBIN 10.1 G/DL (14.2-18.0); LYMPHOCYTES % (AUTO) 26.2 % (20.0-45.0); MEAN CORPUSCULAR VOLUME 93 FL (80-99); MONOCYTES % (AUTO) 12.6 % (1.0-10.0); NEUTROPHILS % (AUTO) 54.1 % (45.0-75.0); PLATELET COUNT 138 K/UL (150-450); RED BLOOD COUNT 3.29 M/UL (4.70-6.10); RED CELL DISTRIBUTION WIDTH 14.4 % (11.6-14.8); WHITE BLOOD COUNT 8.7 K/UL (4.8-10.8)
[2019-04-09 08:00] VITALS: BP 101/66
[2019-04-09 08:01] LABS: ALANINE AMINOTRANSFERASE 14 U/L (12-78); ALBUMIN 1.7 G/DL (3.4-5.0); ALBUMIN/GLOBULIN RATIO 0.4 (1.0-2.7); ALKALINE PHOSPHATASE 104 U/L (46-116); ANION GAP 8 mmol/L (5-15); ASPARTATE AMINO TRANSFERASE 31 U/L (15-37); BILIRUBIN,TOTAL 1.2 MG/DL (0.2-1.0); BLOOD UREA NITROGEN 13 mg/dL (7-18); CALCIUM 8.6 MG/DL (8.5-10.1); CARBON DIOXIDE 19 MMOL/L (21-32); CHLORIDE 110 MMOL/L (98-107); CREATININE 1.8 MG/DL (0.55-1.30); POTASSIUM 4.7 MMOL/L (3.5-5.1); SODIUM 137 MMOL/L (136-145)
[2019-04-09 08:21] LABS: AMMONIA 38 umol/L (11-32)
[2019-04-09] MEDS: Lactulose 20gm/30ml UDC ORAL SCH ×3 (09:39→17:05)
[2019-04-09] MEDS: Aspirin Baby 81mg ORAL SCH (09:39)
[2019-04-09 09:41] LABS: BILIRUBIN,DIRECT 0.4 MG/DL (0.0-0.3)
--- NOTE | 2019-04-09 09:46 | Nephrology Progress Note ---
Assessment/Plan Problem List: (1) CKD (chronic kidney disease) (2) Hepatic encephalopathy (3) CAD (coronary artery disease) (4) CVA (cerebral vascular accident) Assessment Renal failure- Likely chronic and multifactorial ( DM, HTN , Cirrhosui Hepatic encephalopathy Liver Cirrhosis CAD s/p CVAs Plan lactulose po slow hydrate cultures urine studies St eval Per GI Subjective ROS Limited/Unobtainable: No Constitutional: Reports: other - much aler and responsive Objective Objective Last 24 Hour Vital Signs Date Time Temp Pulse Resp B/P (MAP) Pulse Ox O2 Delivery O2 Flow Rate FiO2 04/09/19 08:00 98.1 99 19 101/66 (78) 99 04/09/19 04:00 98.5 105 20 101/63 (76) 98 04/09/19 00:00 98.3 101 20 102/66 (78) 99 04/08/19 21:00 Room Air 04/08/19 20:00 98.6 98 20 106/66 (79) 99 04/08/19 16:00 98.7 103 19 109/72 (84) 98 04/08/19 12:00 98.0 99 18 130/69 (89) 98 Intake and Output 04/08/19 04/09/19 18:59 06:59 Intake Total 1500 ml Output Total 300 ml Balance 1500 ml -300 ml IV Total 500 ml Other 1000 ml Stool Total 300 ml # Voids 2 # Bowel Movements 2 Laboratory Tests 04/08/19 18:20: Urine Color Genet, Urine Appearance Clear, Urine pH 5, Urine Specific [place] 1.020, Urine Protein Negative, Urine Glucose (UA) Negative, Urine Ketones Negative, Urine Blood Negative, Urine Nitrite Negative, Urine Bilirubin Negative , Urine Ictotest Negative, Urine Urobilinogen Normal, Urine Leukocyte Esterase Negative, Urine RBC 0, Urine WBC 0-2, Urine Squamous Epithelial Cells None, Urine Bacteria Occasional 04/09/19 06:39: White Blood Count 8.7, Red Blood Count 3.29L, Hemoglobin 10.1L, Hematocrit 30.5L , Mean Corpuscular Volume 93, Mean Corpuscular Hemoglobin 30.6, Mean Corpuscular Hemoglobin Concent 33.0, Red Cell Distribution Width 14.4, Platelet Count 138L, Mean Platelet Volume 7.4, Neutrophils (%) (Auto) 54.1, Lymphocytes ( %) (Auto) 26.2, Monocytes (%) (Auto) 12.6H, Eosinophils (%) (Auto) 5.5H, Basophils (%) (Auto) 1.5, Sodium Level 137, Potassium Level 4.7, Chloride Level 110H, Carbon Dioxide Level 19L, Anion Gap 8, Blood Urea Nitrogen 13, Creatinine 1.8H, Estimat Glomerular Filtration Rate , Glucose Level 134H, Uric Acid 2.2L, Calcium Level 8.6, Phosphorus Level 3.0, Magnesium Level 1.7L, Total Bilirubin 1.2H, Direct Bilirubin 0.4H, Aspartate Amino Transf (AST/SGOT) 31, Alanine Aminotransferase (ALT/SGPT) 14, Alkaline Phosphatase 104, Ammonia 38H, Total Protein 6.5, Albumin 1.7L, Globulin 4.8, Albumin/Globulin Ratio 0.4L Height (Feet): 6 Height (Inches): 0.00 Weight (Pounds): 180 General Appearance: no apparent distress Cardiovascular: normal rate Respiratory/Chest: lungs clear Abdomen: distended Objective LE edema Phil Enriquez MD Apr 09, 2019 09:46
[2019-04-09 12:00] VITALS: BP 104/67
[2019-04-09 16:00] VITALS: BP 109/69
--- NOTE | 2019-04-09 18:11 | Surgery Progress Note ---
Surgery Progress Note Subjective Symptoms: improved, pain absent, tolerating diet, voiding well, passing flatus , BM Objective Last 24 Hour Vital Signs Date Time Temp Pulse Resp B/P (MAP) Pulse Ox O2 Delivery O2 Flow Rate FiO2 04/09/19 16:00 98.4 107 20 109/69 (82) 100 04/09/19 12:00 98.1 105 19 104/67 (79) 99 04/09/19 09:00 Room Air 04/09/19 08:00 98.1 99 19 101/66 (78) 99 04/09/19 04:00 98.5 105 20 101/63 (76) 98 04/09/19 00:00 98.3 101 20 102/66 (78) 99 04/08/19 21:00 Room Air 04/08/19 20:00 98.6 98 20 106/66 (79) 99 I&O Intake and Output 04/08/19 04/09/19 19:00 07:00 Intake Total 1500 ml Output Total 300 ml Balance 1500 ml -300 ml IV Total 500 ml Other 1000 ml Stool Total 300 ml # Voids 2 # Bowel Movements 2 Dressing: dry Wound: clean Cardiovascular: RSR Respiratory: clear Abdomen: soft, flat, non-tender, present bowel sounds Extremities: edema - much improved , no cyanosis Laboratory Tests Test 04/08/19 18:20 04/09/19 06:39 Urine Color Genet Urine Appearance Clear Urine pH 5 (4.5-8.0) Urine Specific [place] 1.020 (1.005-1.035) Urine Protein Negative (NEGATIVE) Urine Glucose (UA) Negative (NEGATIVE) Urine Ketones Negative (NEGATIVE) Urine Blood Negative (NEGATIVE) Urine Nitrite Negative (NEGATIVE) Urine Bilirubin Negative (NEGATIVE) Urine Ictotest Negative (NEGATIVE) Urine Urobilinogen Normal MG/DL (0.0-1.0) Urine Leukocyte Esterase Negative (NEGATIVE) Urine RBC 0 /HPF (0 - 0) Urine WBC 0-2 /HPF (0 - 0) Urine Squamous Epithelial Cells None /LPF (NONE/OCC) Urine Bacteria Occasional /HPF (NONE) White Blood Count 8.7 K/UL (4.8-10.8) Red Blood Count 3.29 M/UL (4.70-6.10) L Hemoglobin 10.1 G/DL (14.2-18.0) L Hematocrit 30.5 % (42.0-52.0) L Mean Corpuscular Volume 93 FL (80-99) Mean Corpuscular Hemoglobin 30.6 PG (27.0-31.0) Mean Corpuscular Hemoglobin Concent 33.0 G/DL (32.0-36.0) Red Cell Distribution Width 14.4 % (11.6-14.8) Platelet Count 138 K/UL (150-450) L Mean Platelet Volume 7.4 FL (6.5-10.1) Neutrophils (%) (Auto) 54.1 % (45.0-75.0) Lymphocytes (%) (Auto) 26.2 % (20.0-45.0) Monocytes (%) (Auto) 12.6 % (1.0-10.0) H Eosinophils (%) (Auto) 5.5 % (0.0-3.0) H Basophils (%) (Auto) 1.5 % (0.0-2.0) Sodium Level 137 MMOL/L (136-145) Potassium Level 4.7 MMOL/L (3.5-5.1) Chloride Level 110 MMOL/L (98-107) H Carbon Dioxide Level 19 MMOL/L (21-32) L Anion Gap 8 mmol/L (5-15) Blood Urea Nitrogen 13 mg/dL (7-18) Creatinine 1.8 MG/DL (0.55-1.30) H Estimat Glomerular Filtration Rate mL/min (>60) Glucose Level 134 MG/DL (74-106) H Uric Acid 2.2 MG/DL (2.6-7.2) L Calcium Level 8.6 MG/DL (8.5-10.1) Phosphorus Level 3.0 MG/DL (2.5-4.9) Magnesium Level 1.7 MG/DL (1.8-2.4) L Total Bilirubin 1.2 MG/DL (0.2-1.0) H Direct Bilirubin 0.4 MG/DL (0.0-0.3) H Aspartate Amino Transf (AST/SGOT) 31 U/L (15-37) Alanine Aminotransferase (ALT/SGPT) 14 U/L (12-78) Alkaline Phosphatase 104 U/L (46-116) Ammonia 38 umol/L (11-32) H Total Protein 6.5 G/DL (6.4-8.2) Albumin 1.7 G/DL (3.4-5.0) L Globulin 4.8 g/dL Albumin/Globulin Ratio 0.4 (1.0-2.7) L Plan Problems: (1) Leg edema Assessment & Plan: possible cardiac related venous duplex noted no dvt improved (2) Abdominal pain Assessment & Plan: due to ascites. hx of prior paracentesis no surgical abdomen soft, distended, fluid filled o n/v/f/c okay for diet will follow with recs thank you (3) Abnormal LFTs Assessment & Plan: elevated t bili. abnormal lft's not obstructive in nature no acute intervention planned Impression: Evidence of hepatic cirrhosis, with coarsened atrophic nodular liver Probable cholelithiasis. Gallbladder wall thickening is noted, probably secondary to the hemodynamic derangements related to the hepatic disease and exaggerated by lack of distention. Less likely, gallbladder wall thickening could indicate acute cholecystitis, and bladder are nuclear scan should be considered if there is high clinical suspicion Ascites Left pleural effusion Mildly increased renal echogenicity, could indicate medical renal disease Note inability to visualize the abdominal aorta trend labs will follow Sumit Fernandez Apr 09, 2019 18:11
[2019-04-09 20:00] VITALS: BP 113/64
--- NOTE | 2019-04-09 22:05 | General Progress Note ---
Assessment/Plan Problem List: (1) Liver cirrhosis ICD Codes: K74.60 - Unspecified cirrhosis of liver SNOMED: 20268771 (2) Hepatic encephalopathy ICD Codes: K72.90 - Hepatic failure, unspecified without coma SNOMED: 49610329 (3) CKD (chronic kidney disease) ICD Codes: N18.9 - Chronic kidney disease, unspecified SNOMED: 183202136 (4) CAD (coronary artery disease) ICD Codes: I25.10 - Atherosclerotic heart disease of [place] coronary artery without angina pectoris SNOMED: 81047443 (5) Leg edema ICD Codes: R60.0 - Localized edema SNOMED: 676049481 (6) Abdominal pain ICD Codes: R10.9 - Unspecified abdominal pain SNOMED: 56246423 (7) Abnormal LFTs ICD Codes: R94.5 - Abnormal results of liver function studies SNOMED: 237764467 Status: stable, progressing Assessment/Plan: s/p fall r/o cva etoh check ammonia level hepatic encephalopathy cad ams edems r/o hepatorenal syndrome Subjective ROS Limited/Unobtainable: Yes Allergies: Coded Allergies: No Known Allergies (Unverified , 04/05/19) Objective Last 24 Hour Vital Signs Date Time Temp Pulse Resp B/P (MAP) Pulse Ox O2 Delivery O2 Flow Rate FiO2 04/09/19 21:00 Room Air 04/09/19 20:00 97.9 104 20 113/64 (80) 96 04/09/19 16:00 98.4 107 20 109/69 (82) 100 04/09/19 12:00 98.1 105 19 104/67 (79) 99 04/09/19 09:00 Room Air 04/09/19 08:00 98.1 99 19 101/66 (78) 99 04/09/19 04:00 98.5 105 20 101/63 (76) 98 04/09/19 00:00 98.3 101 20 102/66 (78) 99 Intake and Output 04/08/19 04/09/19 19:00 07:00 Intake Total 1500 ml Output Total 300 ml Balance 1500 ml -300 ml IV Total 500 ml Other 1000 ml Stool Total 300 ml # Voids 2 # Bowel Movements 2 Laboratory Tests 04/09/19 06:39: White Blood Count 8.7, Red Blood Count 3.29L, Hemoglobin 10.1L, Hematocrit 30.5L , Mean Corpuscular Volume 93, Mean Corpuscular Hemoglobin 30.6, Mean Corpuscular Hemoglobin Concent 33.0, Red Cell Distribution Width 14.4, Platelet Count 138L, Mean Platelet Volume 7.4, Neutrophils (%) (Auto) 54.1, Lymphocytes ( %) (Auto) 26.2, Monocytes (%) (Auto) 12.6H, Eosinophils (%) (Auto) 5.5H, Basophils (%) (Auto) 1.5, Sodium Level 137, Potassium Level 4.7, Chloride Level 110H, Carbon Dioxide Level 19L, Anion Gap 8, Blood Urea Nitrogen 13, Creatinine 1.8H, Estimat Glomerular Filtration Rate , Glucose Level 134H, Uric Acid 2.2L, Calcium Level 8.6, Phosphorus Level 3.0, Magnesium Level 1.7L, Total Bilirubin 1.2H, Direct Bilirubin 0.4H, Aspartate Amino Transf (AST/SGOT) 31, Alanine Aminotransferase (ALT/SGPT) 14, Alkaline Phosphatase 104, Ammonia 38H, Total Protein 6.5, Albumin 1.7L, Globulin 4.8, Albumin/Globulin Ratio 0.4L Height (Feet): 6 Height (Inches): 0.00 Weight (Pounds): 180 Neck: normal alignment Cardiovascular: normal rate Respiratory/Chest: lungs clear Alta Kelley MD Apr 09, 2019 22:05
[2019-04-10] VITALS: BP 123/68
[2019-04-10 04:00] VITALS: BP 104/72
--- NOTE | 2019-04-10 06:42 | General Progress Note ---
Assessment/Plan Status: stable, progressing Assessment/Plan: (1) Abnormal LFTs ICD Codes: R94.5 - Abnormal results of liver function studies SNOMED: 273143770 (2) Abdominal pain ICD Codes: R10.9 - Unspecified abdominal pain SNOMED: 48542620 (3) Hepatic encephalopathy ICD Codes: K72.90 - Hepatic failure, unspecified without coma SNOMED: 52860244 (4) Liver cirrhosis ICD Codes: K74.60 - Unspecified cirrhosis of liver SNOMED: 08338797 Status: stable, progressing . Assessment/Plan Nonalcoholic cirrhosis Abdominal ultrasound reviewed noted with ascites Occult blood stool was negative Follow-up hepatitis panel>>> neg Trend LFTs, ammonia levels>>improving Lactulose + Xifaxan PPI paracentesis if needed PRN transfusions needs out patient fu for GI procedures Subjective ROS Limited/Unobtainable: Yes Allergies: Coded Allergies: No Known Allergies (Unverified , 04/05/19) Subjective eats well had BM Objective Last 24 Hour Vital Signs Date Time Temp Pulse Resp B/P (MAP) Pulse Ox O2 Delivery O2 Flow Rate FiO2 04/10/19 04:00 98.9 90 20 104/72 (83) 98 04/10/19 00:00 98.8 105 20 123/68 (86) 99 04/09/19 21:00 Room Air 04/09/19 20:00 97.9 104 20 113/64 (80) 96 04/09/19 16:00 98.4 107 20 109/69 (82) 100 04/09/19 12:00 98.1 105 19 104/67 (79) 99 04/09/19 09:00 Room Air 04/09/19 08:00 98.1 99 19 101/66 (78) 99 Intake and Output 04/09/19 04/10/19 19:00 07:00 Intake Total 1200 ml Balance 1200 ml IV Total 200 ml Other 1000 ml # Voids 3 # Bowel Movements 3 Laboratory Tests 04/10/19 05:45: White Blood Count [Pending], Red Blood Count [Pending], Hemoglobin [Pending], Hematocrit [Pending], Mean Corpuscular Volume [Pending], Mean Corpuscular Hemoglobin [Pending], Mean Corpuscular Hemoglobin Concent [Pending], Red Cell Distribution Width [Pending], Platelet Count [Pending], Mean Platelet Volume [ Pending], Neutrophils (%) (Auto) [Pending], Lymphocytes (%) (Auto) [Pending], Monocytes (%) (Auto) [Pending], Eosinophils (%) (Auto) [Pending], Basophils (%) (Auto) [Pending], Sodium Level [Pending], Potassium Level [Pending], Chloride Level [Pending], Carbon Dioxide Level [Pending], Blood Urea Nitrogen [Pending], Creatinine [Pending], Estimat Glomerular Filtration Rate [Pending], Glucose Level [Pending], Calcium Level [Pending], Total Bilirubin [Pending], Aspartate Amino Transf (AST/SGOT) [Pending], Alanine Aminotransferase (ALT/SGPT) [Pending] , Alkaline Phosphatase [Pending], Total Protein [Pending], Albumin [Pending], Globulin [Pending] Height (Feet): 6 Height (Inches): 0.00 Weight (Pounds): 180 General Appearance: alert EENT: normal ENT inspection Neck: supple Cardiovascular: normal rate Respiratory/Chest: accessory muscle use Abdomen: normal bowel sounds, non tender, soft Extremities: non-tender Jose De La Torre MD Apr 10, 2019 06:42
[2019-04-10 06:53] LABS: BASOPHILS % (AUTO) 1.7 % (0.0-2.0); EOSINOPHILS % (AUTO) 4.8 % (0.0-3.0); HEMATOCRIT 31.3 % (42.0-52.0); HEMOGLOBIN 10.4 G/DL (14.2-18.0); LYMPHOCYTES % (AUTO) 21.7 % (20.0-45.0); MEAN CORPUSCULAR VOLUME 93 FL (80-99); MONOCYTES % (AUTO) 11.1 % (1.0-10.0); NEUTROPHILS % (AUTO) 60.7 % (45.0-75.0); PLATELET COUNT 134 K/UL (150-450); RED BLOOD COUNT 3.35 M/UL (4.70-6.10); RED CELL DISTRIBUTION WIDTH 15.1 % (11.6-14.8); WHITE BLOOD COUNT 8.7 K/UL (4.8-10.8)
[2019-04-10 07:43] LABS: ALANINE AMINOTRANSFERASE 14 U/L (12-78); ALBUMIN 1.9 G/DL (3.4-5.0); ALBUMIN/GLOBULIN RATIO 0.4 (1.0-2.7); ALKALINE PHOSPHATASE 105 U/L (46-116); ANION GAP 11 mmol/L (5-15); ASPARTATE AMINO TRANSFERASE 35 U/L (15-37); BILIRUBIN,TOTAL 1.4 MG/DL (0.2-1.0); BLOOD UREA NITROGEN 14 mg/dL (7-18); CALCIUM 8.5 MG/DL (8.5-10.1); CARBON DIOXIDE 17 MMOL/L (21-32); CHLORIDE 109 MMOL/L (98-107); CREATININE 1.8 MG/DL (0.55-1.30); POTASSIUM 4.8 MMOL/L (3.5-5.1); SODIUM 137 MMOL/L (136-145)
[2019-04-10 07:46] LABS: BILIRUBIN,DIRECT 0.4 MG/DL (0.0-0.3)
[2019-04-10 08:00] VITALS: BP 115/77
[2019-04-10] MEDS: Lactulose 20gm/30ml UDC ORAL SCH ×3 (08:12→17:03)
[2019-04-10] MEDS: Aspirin Baby 81mg ORAL SCH (08:13)
--- NOTE | 2019-04-10 11:39 | Surgery Progress Note ---
Surgery Progress Note Subjective Additional Comments Patient seen and examined at bedside. No acute events. Patient comfortable. No nausea vomiting fever chills. Edema improved. Labs improved. Objective Last 24 Hour Vital Signs Date Time Temp Pulse Resp B/P (MAP) Pulse Ox O2 Delivery O2 Flow Rate FiO2 04/10/19 09:00 Room Air 04/10/19 08:00 98.2 115 18 115/77 (90) 99 04/10/19 04:00 98.9 90 20 104/72 (83) 98 04/10/19 00:00 98.8 105 20 123/68 (86) 99 04/09/19 21:00 Room Air 04/09/19 20:00 97.9 104 20 113/64 (80) 96 04/09/19 16:00 98.4 107 20 109/69 (82) 100 04/09/19 12:00 98.1 105 19 104/67 (79) 99 I&O Intake and Output 04/09/19 04/10/19 18:59 06:59 Intake Total 1200 ml Balance 1200 ml IV Total 200 ml Other 1000 ml # Voids 3 # Bowel Movements 3 Dressing: dry Wound: clean Cardiovascular: RSR Respiratory: clear Abdomen: soft, non-tender, present bowel sounds Extremities: edema, no tenderness, no cyanosis Laboratory Tests Test 04/10/19 05:45 White Blood Count 8.7 K/UL (4.8-10.8) Red Blood Count 3.35 M/UL (4.70-6.10) L Hemoglobin 10.4 G/DL (14.2-18.0) L Hematocrit 31.3 % (42.0-52.0) L Mean Corpuscular Volume 93 FL (80-99) Mean Corpuscular Hemoglobin 30.9 PG (27.0-31.0) Mean Corpuscular Hemoglobin Concent 33.1 G/DL (32.0-36.0) Red Cell Distribution Width 15.1 % (11.6-14.8) H Platelet Count 134 K/UL (150-450) L Mean Platelet Volume 8.1 FL (6.5-10.1) Neutrophils (%) (Auto) 60.7 % (45.0-75.0) Lymphocytes (%) (Auto) 21.7 % (20.0-45.0) Monocytes (%) (Auto) 11.1 % (1.0-10.0) H Eosinophils (%) (Auto) 4.8 % (0.0-3.0) H Basophils (%) (Auto) 1.7 % (0.0-2.0) Sodium Level 137 MMOL/L (136-145) Potassium Level 4.8 MMOL/L (3.5-5.1) Chloride Level 109 MMOL/L (98-107) H Carbon Dioxide Level 17 MMOL/L (21-32) L Anion Gap 11 mmol/L (5-15) Blood Urea Nitrogen 14 mg/dL (7-18) Creatinine 1.8 MG/DL (0.55-1.30) H Estimat Glomerular Filtration Rate mL/min (>60) Glucose Level 145 MG/DL (74-106) H Calcium Level 8.5 MG/DL (8.5-10.1) Total Bilirubin 1.4 MG/DL (0.2-1.0) H Direct Bilirubin 0.4 MG/DL (0.0-0.3) H Aspartate Amino Transf (AST/SGOT) 35 U/L (15-37) Alanine Aminotransferase (ALT/SGPT) 14 U/L (12-78) Alkaline Phosphatase 105 U/L (46-116) Total Protein 6.9 G/DL (6.4-8.2) Albumin 1.9 G/DL (3.4-5.0) L Globulin 5.0 g/dL Albumin/Globulin Ratio 0.4 (1.0-2.7) L Plan Problems: (1) Leg edema Assessment & Plan: Overall leg edema significantly improved. Continue with leg elevation Medication as written venous duplex noted no dvt improved (2) Abdominal pain Assessment & Plan: due to ascites. hx of prior paracentesis no surgical abdomen soft, distended, fluid filled o n/v/f/c okay for diet will follow with recs thank you (3) Abnormal LFTs Assessment & Plan: elevated t bili. abnormal lft's not obstructive in nature no acute intervention planned Impression: Evidence of hepatic cirrhosis, with coarsened atrophic nodular liver Probable cholelithiasis. Gallbladder wall thickening is noted, probably secondary to the hemodynamic derangements related to the hepatic disease and exaggerated by lack of distention. Less likely, gallbladder wall thickening could indicate acute cholecystitis, and bladder are nuclear scan should be considered if there is high clinical suspicion Ascites Left pleural effusion Mildly increased renal echogenicity, could indicate medical renal disease Note inability to visualize the abdominal aorta trend labs will follow Sumit Fernandez Apr 10, 2019 11:39
[2019-04-10 12:00] VITALS: BP 104/66
[2019-04-10 16:00] VITALS: BP 114/64
--- NOTE | 2019-04-10 17:09 | Nephrology Progress Note ---
Assessment/Plan Problem List: (1) CKD (chronic kidney disease) (2) Hepatic encephalopathy (3) CAD (coronary artery disease) (4) CVA (cerebral vascular accident) Assessment Renal failure- Likely chronic and multifactorial ( DM, HTN , Cirrhosui Hepatic encephalopathy Liver Cirrhosis CAD s/p CVAs Plan lactulose po slow hydrate cultures urine studies St eval Per GI Subjective ROS Limited/Unobtainable: No Objective Objective Last 24 Hour Vital Signs Date Time Temp Pulse Resp B/P (MAP) Pulse Ox O2 Delivery O2 Flow Rate FiO2 04/10/19 16:00 97.9 110 20 114/64 (81) 99 04/10/19 12:00 98.4 106 18 104/66 (79) 98 04/10/19 09:00 Room Air 04/10/19 08:00 98.2 115 18 115/77 (90) 99 04/10/19 04:00 98.9 90 20 104/72 (83) 98 04/10/19 00:00 98.8 105 20 123/68 (86) 99 04/09/19 21:00 Room Air 04/09/19 20:00 97.9 104 20 113/64 (80) 96 Intake and Output 04/09/19 04/10/19 18:59 06:59 Intake Total 1200 ml Balance 1200 ml IV Total 200 ml Other 1000 ml # Voids 3 # Bowel Movements 3 Laboratory Tests 04/10/19 05:45: White Blood Count 8.7, Red Blood Count 3.35L, Hemoglobin 10.4L, Hematocrit 31.3L , Mean Corpuscular Volume 93, Mean Corpuscular Hemoglobin 30.9, Mean Corpuscular Hemoglobin Concent 33.1, Red Cell Distribution Width 15.1H, Platelet Count 134L, Mean Platelet Volume 8.1, Neutrophils (%) (Auto) 60.7, Lymphocytes (%) (Auto) 21.7, Monocytes (%) (Auto) 11.1H, Eosinophils (%) (Auto) 4.8H, Basophils (%) (Auto) 1.7, Sodium Level 137, Potassium Level 4.8, Chloride Level 109H, Carbon Dioxide Level 17L, Anion Gap 11, Blood Urea Nitrogen 14, Creatinine 1.8H, Estimat Glomerular Filtration Rate , Glucose Level 145H, Calcium Level 8.5, Total Bilirubin 1.4H, Direct Bilirubin 0.4H, Aspartate Amino Transf (AST/SGOT) 35, Alanine Aminotransferase (ALT/SGPT) 14, Alkaline Phosphatase 105, Total Protein 6.9, Albumin 1.9L, Globulin 5.0, Albumin/ Globulin Ratio 0.4L Height (Feet): 6 Height (Inches): 0.00 Weight (Pounds): 180 General Appearance: no apparent distress Respiratory/Chest: decreased breath sounds Abdomen: distended Neurologic: other - much more alert Objective LE edema Phil Enriquez MD Apr 10, 2019 17:09
[2019-04-10 20:00] VITALS: BP 122/70
--- NOTE | 2019-04-10 20:20 | General Progress Note ---
Assessment/Plan Problem List: (1) Liver cirrhosis ICD Codes: K74.60 - Unspecified cirrhosis of liver SNOMED: 26261633 (2) Hepatic encephalopathy ICD Codes: K72.90 - Hepatic failure, unspecified without coma SNOMED: 23334195 (3) CKD (chronic kidney disease) ICD Codes: N18.9 - Chronic kidney disease, unspecified SNOMED: 949316090 (4) CAD (coronary artery disease) ICD Codes: I25.10 - Atherosclerotic heart disease of [place] coronary artery without angina pectoris SNOMED: 26987033 (5) Leg edema ICD Codes: R60.0 - Localized edema SNOMED: 714871927 (6) Abdominal pain ICD Codes: R10.9 - Unspecified abdominal pain SNOMED: 98061853 (7) Abnormal LFTs ICD Codes: R94.5 - Abnormal results of liver function studies SNOMED: 441865874 Status: stable, progressing Assessment/Plan: s/p fall r/o cva check ammonia level hepatic encephalopathy cad ams r/o hepatorenal syndrome stable dc in am reviewed chart Subjective ROS Limited/Unobtainable: Yes Allergies: Coded Allergies: No Known Allergies (Unverified , 04/05/19) Objective Last 24 Hour Vital Signs Date Time Temp Pulse Resp B/P (MAP) Pulse Ox O2 Delivery O2 Flow Rate FiO2 04/10/19 16:00 97.9 110 20 114/64 (81) 99 04/10/19 12:00 98.4 106 18 104/66 (79) 98 04/10/19 09:00 Room Air 04/10/19 08:00 98.2 115 18 115/77 (90) 99 04/10/19 04:00 98.9 90 20 104/72 (83) 98 04/10/19 00:00 98.8 105 20 123/68 (86) 99 04/09/19 21:00 Room Air Intake and Output 04/09/19 04/10/19 19:00 07:00 Intake Total 1200 ml Balance 1200 ml IV Total 200 ml Other 1000 ml # Voids 3 # Bowel Movements 3 Laboratory Tests 04/10/19 05:45: White Blood Count 8.7, Red Blood Count 3.35L, Hemoglobin 10.4L, Hematocrit 31.3L , Mean Corpuscular Volume 93, Mean Corpuscular Hemoglobin 30.9, Mean Corpuscular Hemoglobin Concent 33.1, Red Cell Distribution Width 15.1H, Platelet Count 134L, Mean Platelet Volume 8.1, Neutrophils (%) (Auto) 60.7, Lymphocytes (%) (Auto) 21.7, Monocytes (%) (Auto) 11.1H, Eosinophils (%) (Auto) 4.8H, Basophils (%) (Auto) 1.7, Sodium Level 137, Potassium Level 4.8, Chloride Level 109H, Carbon Dioxide Level 17L, Anion Gap 11, Blood Urea Nitrogen 14, Creatinine 1.8H, Estimat Glomerular Filtration Rate , Glucose Level 145H, Calcium Level 8.5, Total Bilirubin 1.4H, Direct Bilirubin 0.4H, Aspartate Amino Transf (AST/SGOT) 35, Alanine Aminotransferase (ALT/SGPT) 14, Alkaline Phosphatase 105, Total Protein 6.9, Albumin 1.9L, Globulin 5.0, Albumin/ Globulin Ratio 0.4L Height (Feet): 6 Height (Inches): 0.00 Weight (Pounds): 180 Neck: supple Cardiovascular: normal rate Respiratory/Chest: lungs clear Abdomen: soft Alta Kelley MD Apr 10, 2019 20:20
[2019-04-11] VITALS: BP 104/69
[2019-04-11 04:00] VITALS: BP 110/68
[2019-04-11 07:45] LABS: BASOPHILS % (AUTO) 1.6 % (0.0-2.0); EOSINOPHILS % (AUTO) 5.2 % (0.0-3.0); HEMOGLOBIN 10.4 G/DL (14.2-18.0); LYMPHOCYTES % (AUTO) 21.5 % (20.0-45.0); MEAN CORPUSCULAR VOLUME 89 FL (80-99); MONOCYTES % (AUTO) 11.2 % (1.0-10.0); NEUTROPHILS % (AUTO) 60.5 % (45.0-75.0); PLATELET COUNT 141 K/UL (150-450); RED BLOOD COUNT 3.36 M/UL (4.70-6.10); RED CELL DISTRIBUTION WIDTH 13.9 % (11.6-14.8); WHITE BLOOD COUNT 9.3 K/UL (4.8-10.8)
[2019-04-11 07:58] LABS: ALANINE AMINOTRANSFERASE 16 U/L (12-78); ALBUMIN 1.9 G/DL (3.4-5.0); ALBUMIN/GLOBULIN RATIO 0.4 (1.0-2.7); ALKALINE PHOSPHATASE 106 U/L (46-116); ANION GAP 10 mmol/L (5-15); ASPARTATE AMINO TRANSFERASE 33 U/L (15-37); BILIRUBIN,TOTAL 1.6 MG/DL (0.2-1.0); BLOOD UREA NITROGEN 16 mg/dL (7-18); CALCIUM 8.7 MG/DL (8.5-10.1); CARBON DIOXIDE 18 MMOL/L (21-32); CHLORIDE 106 MMOL/L (98-107); CREATININE 1.8 MG/DL (0.55-1.30); POTASSIUM 5.3 MMOL/L (3.5-5.1); SODIUM 134 MMOL/L (136-145)
[2019-04-11 08:00] VITALS: BP 100/65
[2019-04-11 08:00] LABS: BILIRUBIN,DIRECT 0.4 MG/DL (0.0-0.3)
[2019-04-11 08:29] LABS: PHOSPHORUS 2.2 MG/DL (2.5-4.9)
[2019-04-11] MEDS: Lactulose 20gm/30ml UDC ORAL SCH ×3 (09:55→17:20)
[2019-04-11] MEDS: Aspirin Baby 81mg ORAL SCH (09:55)
[2019-04-11] MEDS ORDERED: Sodium Polystyrene Sulfonate 15gm Powder ORAL ONE (10:00)
--- NOTE | 2019-04-11 10:36 | Nephrology Progress Note ---
Assessment/Plan Problem List: (1) CKD (chronic kidney disease) (2) Hepatic encephalopathy (3) CAD (coronary artery disease) (4) CVA (cerebral vascular accident) Assessment Renal failure- Likely chronic and multifactorial ( DM, HTN , Cirrhosui Hepatic encephalopathy Liver Cirrhosis CAD s/p CVAs Plan stop K supplement lactulose po slow hydrate cultures urine studies St eval Per GI Subjective ROS Limited/Unobtainable: No Constitutional: Reports: malaise Objective Objective Last 24 Hour Vital Signs Date Time Temp Pulse Resp B/P (MAP) Pulse Ox O2 Delivery O2 Flow Rate FiO2 04/11/19 08:00 99.6 117 20 100/65 (77) 98 04/11/19 04:00 98.5 106 16 110/68 (82) 98 04/11/19 00:00 98.7 105 16 104/69 (81) 97 04/10/19 21:00 Room Air 04/10/19 20:00 99.2 107 18 122/70 (87) 98 04/10/19 16:00 97.9 110 20 114/64 (81) 99 04/10/19 12:00 98.4 106 18 104/66 (79) 98 Intake and Output 04/10/19 04/11/19 19:00 07:00 Intake Total 300 ml 750 ml Balance 300 ml 750 ml Intake Oral 300 ml 750 ml # Voids 2 # Bowel Movements 1 1 Laboratory Tests 04/11/19 05:40: White Blood Count 9.3, Red Blood Count 3.36L, Hemoglobin 10.4L, Hematocrit 30.0L , Mean Corpuscular Volume 89, Mean Corpuscular Hemoglobin 30.9, Mean Corpuscular Hemoglobin Concent 34.6, Red Cell Distribution Width 13.9, Platelet Count 141L, Mean Platelet Volume 7.6, Neutrophils (%) (Auto) 60.5, Lymphocytes ( %) (Auto) 21.5, Monocytes (%) (Auto) 11.2H, Eosinophils (%) (Auto) 5.2H, Basophils (%) (Auto) 1.6, Sodium Level 134L, Potassium Level 5.3H, Chloride Level 106, Carbon Dioxide Level 18L, Anion Gap 10, Blood Urea Nitrogen 16, Creatinine 1.8H, Estimat Glomerular Filtration Rate , Glucose Level 132H, Uric Acid 7.4H, Calcium Level 8.7, Phosphorus Level 2.2L, Magnesium Level 2.1, Total Bilirubin 1.6H, Direct Bilirubin 0.4H, Aspartate Amino Transf (AST/SGOT) 33, Alanine Aminotransferase (ALT/SGPT) 16, Alkaline Phosphatase 106, Ammonia 48H, Total Protein 7.2, Albumin 1.9L, Globulin 5.3, Albumin/Globulin Ratio 0.4L Height (Feet): 6 Height (Inches): 0.00 Weight (Pounds): 180 General Appearance: no apparent distress Cardiovascular: tachycardia Respiratory/Chest: decreased breath sounds Abdomen: distended Objective LE edema Phil Enriquez MD Apr 11, 2019 10:36
[2019-04-11] MEDS ORDERED: Phospha 250 Neutral tab ORAL SCH (10:45)
--- NOTE | 2019-04-11 10:53 | GI Progress Note ---
Assessment/Plan Problems: (1) Abnormal LFTs ICD Codes: R94.5 - Abnormal results of liver function studies SNOMED: 088660762 (2) Abdominal pain ICD Codes: R10.9 - Unspecified abdominal pain SNOMED: 87061518 (3) Hepatic encephalopathy ICD Codes: K72.90 - Hepatic failure, unspecified without coma SNOMED: 72415395 (4) Liver cirrhosis ICD Codes: K74.60 - Unspecified cirrhosis of liver SNOMED: 28905539 Status: stable Status Narrative Discussed with Dr. De La Torre. Assessment/Plan Nonalcoholic cirrhosis Abdominal ultrasound reviewed noted with ascites Occult blood stool was negative Follow-up hepatitis panel>>> neg Trend LFTs, ammonia levels>>improving Lactulose + Xifaxan PPI paracentesis if needed PRN transfusions needs outpatient fu for GI procedures dc planning The patient was seen and examined at bedside and all new and available data was reviewed in the patients chart. I agree with the above findings, impression and plan. (Patient seen earlier today. Signature stamp does not reflect patient encounter time.). - Jose De La Torre MD Subjective Gastrointestinal/Abdominal: Reports: no symptoms Objective Last 24 Hour Vital Signs Date Time Temp Pulse Resp B/P (MAP) Pulse Ox O2 Delivery O2 Flow Rate FiO2 04/11/19 08:00 99.6 117 20 100/65 (77) 98 04/11/19 04:00 98.5 106 16 110/68 (82) 98 04/11/19 00:00 98.7 105 16 104/69 (81) 97 04/10/19 21:00 Room Air 04/10/19 20:00 99.2 107 18 122/70 (87) 98 04/10/19 16:00 97.9 110 20 114/64 (81) 99 04/10/19 12:00 98.4 106 18 104/66 (79) 98 Intake and Output 04/10/19 04/11/19 19:00 07:00 Intake Total 300 ml 750 ml Balance 300 ml 750 ml Intake Oral 300 ml 750 ml # Voids 2 # Bowel Movements 1 1 Laboratory Tests Test 04/11/19 05:40 White Blood Count 9.3 K/UL (4.8-10.8) Red Blood Count 3.36 M/UL (4.70-6.10) L Hemoglobin 10.4 G/DL (14.2-18.0) L Hematocrit 30.0 % (42.0-52.0) L Mean Corpuscular Volume 89 FL (80-99) Mean Corpuscular Hemoglobin 30.9 PG (27.0-31.0) Mean Corpuscular Hemoglobin Concent 34.6 G/DL (32.0-36.0) Red Cell Distribution Width 13.9 % (11.6-14.8) Platelet Count 141 K/UL (150-450) L Mean Platelet Volume 7.6 FL (6.5-10.1) Neutrophils (%) (Auto) 60.5 % (45.0-75.0) Lymphocytes (%) (Auto) 21.5 % (20.0-45.0) Monocytes (%) (Auto) 11.2 % (1.0-10.0) H Eosinophils (%) (Auto) 5.2 % (0.0-3.0) H Basophils (%) (Auto) 1.6 % (0.0-2.0) Sodium Level 134 MMOL/L (136-145) L Potassium Level 5.3 MMOL/L (3.5-5.1) H Chloride Level 106 MMOL/L (98-107) Carbon Dioxide Level 18 MMOL/L (21-32) L Anion Gap 10 mmol/L (5-15) Blood Urea Nitrogen 16 mg/dL (7-18) Creatinine 1.8 MG/DL (0.55-1.30) H Estimat Glomerular Filtration Rate mL/min (>60) Glucose Level 132 MG/DL (74-106) H Uric Acid 7.4 MG/DL (2.6-7.2) H Calcium Level 8.7 MG/DL (8.5-10.1) Phosphorus Level 2.2 MG/DL (2.5-4.9) L Magnesium Level 2.1 MG/DL (1.8-2.4) Total Bilirubin 1.6 MG/DL (0.2-1.0) H Direct Bilirubin 0.4 MG/DL (0.0-0.3) H Aspartate Amino Transf (AST/SGOT) 33 U/L (15-37) Alanine Aminotransferase (ALT/SGPT) 16 U/L (12-78) Alkaline Phosphatase 106 U/L (46-116) Ammonia 48 umol/L (11-32) H Total Protein 7.2 G/DL (6.4-8.2) Albumin 1.9 G/DL (3.4-5.0) L Globulin 5.3 g/dL Albumin/Globulin Ratio 0.4 (1.0-2.7) L Height (Feet): 6 Height (Inches): 0.00 Weight (Pounds): 180 General Appearance: WD/WN, no apparent distress, alert Cardiovascular: normal rate Respiratory/Chest: normal breath sounds, no respiratory distress Abdominal Exam: normal bowel sounds, non tender, soft Extremities: normal range of motion, non-tender Stefany Breaux NP Apr 11, 2019 10:53
[2019-04-11 12:00] VITALS: BP 105/69
--- NOTE | 2019-04-11 13:50 | Surgery Progress Note ---
Surgery Progress Note Subjective Symptoms: improved Objective Last 24 Hour Vital Signs Date Time Temp Pulse Resp B/P (MAP) Pulse Ox O2 Delivery O2 Flow Rate FiO2 04/11/19 09:00 Room Air 04/11/19 08:00 99.6 117 20 100/65 (77) 98 04/11/19 04:00 98.5 106 16 110/68 (82) 98 04/11/19 00:00 98.7 105 16 104/69 (81) 97 04/10/19 21:00 Room Air 04/10/19 20:00 99.2 107 18 122/70 (87) 98 04/10/19 16:00 97.9 110 20 114/64 (81) 99 I&O Intake and Output 04/10/19 04/11/19 19:00 07:00 Intake Total 300 ml 750 ml Balance 300 ml 750 ml Intake Oral 300 ml 750 ml # Voids 2 # Bowel Movements 1 1 Dressing: dry Wound: clean Cardiovascular: RSR Respiratory: clear Abdomen: soft, flat Extremities: edema Laboratory Tests Test 04/11/19 05:40 White Blood Count 9.3 K/UL (4.8-10.8) Red Blood Count 3.36 M/UL (4.70-6.10) L Hemoglobin 10.4 G/DL (14.2-18.0) L Hematocrit 30.0 % (42.0-52.0) L Mean Corpuscular Volume 89 FL (80-99) Mean Corpuscular Hemoglobin 30.9 PG (27.0-31.0) Mean Corpuscular Hemoglobin Concent 34.6 G/DL (32.0-36.0) Red Cell Distribution Width 13.9 % (11.6-14.8) Platelet Count 141 K/UL (150-450) L Mean Platelet Volume 7.6 FL (6.5-10.1) Neutrophils (%) (Auto) 60.5 % (45.0-75.0) Lymphocytes (%) (Auto) 21.5 % (20.0-45.0) Monocytes (%) (Auto) 11.2 % (1.0-10.0) H Eosinophils (%) (Auto) 5.2 % (0.0-3.0) H Basophils (%) (Auto) 1.6 % (0.0-2.0) Sodium Level 134 MMOL/L (136-145) L Potassium Level 5.3 MMOL/L (3.5-5.1) H Chloride Level 106 MMOL/L (98-107) Carbon Dioxide Level 18 MMOL/L (21-32) L Anion Gap 10 mmol/L (5-15) Blood Urea Nitrogen 16 mg/dL (7-18) Creatinine 1.8 MG/DL (0.55-1.30) H Estimat Glomerular Filtration Rate mL/min (>60) Glucose Level 132 MG/DL (74-106) H Uric Acid 7.4 MG/DL (2.6-7.2) H Calcium Level 8.7 MG/DL (8.5-10.1) Phosphorus Level 2.2 MG/DL (2.5-4.9) L Magnesium Level 2.1 MG/DL (1.8-2.4) Total Bilirubin 1.6 MG/DL (0.2-1.0) H Direct Bilirubin 0.4 MG/DL (0.0-0.3) H Aspartate Amino Transf (AST/SGOT) 33 U/L (15-37) Alanine Aminotransferase (ALT/SGPT) 16 U/L (12-78) Alkaline Phosphatase 106 U/L (46-116) Ammonia 48 umol/L (11-32) H Total Protein 7.2 G/DL (6.4-8.2) Albumin 1.9 G/DL (3.4-5.0) L Globulin 5.3 g/dL Albumin/Globulin Ratio 0.4 (1.0-2.7) L Plan Problems: (1) Leg edema Assessment & Plan: Overall leg edema significantly improved. Continue with leg elevation Medication as written venous duplex noted no dvt improved (2) Abdominal pain Assessment & Plan: due to ascites. hx of prior paracentesis no surgical abdomen soft, distended, fluid filled o n/v/f/c okay for diet will follow with recs thank you (3) Abnormal LFTs Assessment & Plan: elevated t bili. abnormal lft's not obstructive in nature no acute intervention planned Impression: Evidence of hepatic cirrhosis, with coarsened atrophic nodular liver Probable cholelithiasis. Gallbladder wall thickening is noted, probably secondary to the hemodynamic derangements related to the hepatic disease and exaggerated by lack of distention. Less likely, gallbladder wall thickening could indicate acute cholecystitis, and bladder are nuclear scan should be considered if there is high clinical suspicion Ascites Left pleural effusion Mildly increased renal echogenicity, could indicate medical renal disease Note inability to visualize the abdominal aorta trend labs will follow Sumit Fernandez Apr 11, 2019 13:50
[2019-04-11 16:00] VITALS: BP 108/68
[2019-04-11 20:00] VITALS: BP 119/75
--- NOTE | 2019-04-11 21:40 | General Progress Note ---
Assessment/Plan Problem List: (1) Liver cirrhosis ICD Codes: K74.60 - Unspecified cirrhosis of liver SNOMED: 58482967 (2) Hepatic encephalopathy ICD Codes: K72.90 - Hepatic failure, unspecified without coma SNOMED: 93717926 (3) CKD (chronic kidney disease) ICD Codes: N18.9 - Chronic kidney disease, unspecified SNOMED: 859346388 (4) CAD (coronary artery disease) ICD Codes: I25.10 - Atherosclerotic heart disease of [place] coronary artery without angina pectoris SNOMED: 70690158 (5) Leg edema ICD Codes: R60.0 - Localized edema SNOMED: 570085940 (6) Abdominal pain ICD Codes: R10.9 - Unspecified abdominal pain SNOMED: 84326448 (7) Abnormal LFTs ICD Codes: R94.5 - Abnormal results of liver function studies SNOMED: 939634851 Status: stable, progressing Assessment/Plan: s/p fall no acute evetns reviewed chart and labs check ammonia level hepatic encephalopathy cad ams r/o hepatorenal syndro Subjective ROS Limited/Unobtainable: Yes Allergies: Coded Allergies: No Known Allergies (Unverified , 04/05/19) Objective Last 24 Hour Vital Signs Date Time Temp Pulse Resp B/P (MAP) Pulse Ox O2 Delivery O2 Flow Rate FiO2 04/11/19 16:00 98.6 109 20 108/68 (81) 95 04/11/19 12:00 98.7 105 20 105/69 (81) 98 04/11/19 09:00 Room Air 04/11/19 08:00 99.6 117 20 100/65 (77) 98 04/11/19 04:00 98.5 106 16 110/68 (82) 98 04/11/19 00:00 98.7 105 16 104/69 (81) 97 Intake and Output 04/10/19 04/11/19 19:00 07:00 Intake Total 300 ml 750 ml Balance 300 ml 750 ml Intake Oral 300 ml 750 ml # Voids 2 # Bowel Movements 1 1 Laboratory Tests 04/11/19 05:40: White Blood Count 9.3, Red Blood Count 3.36L, Hemoglobin 10.4L, Hematocrit 30.0L , Mean Corpuscular Volume 89, Mean Corpuscular Hemoglobin 30.9, Mean Corpuscular Hemoglobin Concent 34.6, Red Cell Distribution Width 13.9, Platelet Count 141L, Mean Platelet Volume 7.6, Neutrophils (%) (Auto) 60.5, Lymphocytes ( %) (Auto) 21.5, Monocytes (%) (Auto) 11.2H, Eosinophils (%) (Auto) 5.2H, Basophils (%) (Auto) 1.6, Sodium Level 134L, Potassium Level 5.3H, Chloride Level 106, Carbon Dioxide Level 18L, Anion Gap 10, Blood Urea Nitrogen 16, Creatinine 1.8H, Estimat Glomerular Filtration Rate , Glucose Level 132H, Uric Acid 7.4H, Calcium Level 8.7, Phosphorus Level 2.2L, Magnesium Level 2.1, Total Bilirubin 1.6H, Direct Bilirubin 0.4H, Aspartate Amino Transf (AST/SGOT) 33, Alanine Aminotransferase (ALT/SGPT) 16, Alkaline Phosphatase 106, Ammonia 48H, Total Protein 7.2, Albumin 1.9L, Globulin 5.3, Albumin/Globulin Ratio 0.4L Height (Feet): 6 Height (Inches): 0.00 Weight (Pounds): 180 Neck: normal alignment Cardiovascular: normal rate Respiratory/Chest: lungs clear Abdomen: soft Alta Kelley MD Apr 11, 2019 21:40
[2019-04-12] VITALS: BP 110/70
[2019-04-12 04:00] VITALS: BP 112/69
[2019-04-12 08:00] VITALS: BP 124/79
[2019-04-12] MEDS: Lactulose 20gm/30ml UDC ORAL SCH (08:40)
[2019-04-12] MEDS: Aspirin Baby 81mg ORAL SCH (08:40)
[2019-04-12 10:59] LABS: ANION GAP 15 mmol/L (5-15); BLOOD UREA NITROGEN 18 mg/dL (7-18); CALCIUM 8.8 MG/DL (8.5-10.1); CARBON DIOXIDE 16 MMOL/L (21-32); CHLORIDE 107 MMOL/L (98-107); CREATININE 1.8 MG/DL (0.55-1.30); POTASSIUM 4.4 MMOL/L (3.5-5.1); SODIUM 138 MMOL/L (136-145)
--- NOTE | 2019-04-12 13:06 | Nephrology Progress Note ---
Assessment/Plan Problem List: (1) CKD (chronic kidney disease) (2) Hepatic encephalopathy (3) CAD (coronary artery disease) (4) CVA (cerebral vascular accident) Assessment Renal failure- Likely chronic and multifactorial ( DM, HTN , Cirrhosis Hepatic encephalopathy Liver Cirrhosis CAD s/p CVAs Plan stop K supplement lactulose po slow hydrate cultures urine studies St eval Per GI Subjective ROS Limited/Unobtainable: No Constitutional: Reports: malaise Objective Objective Last 24 Hour Vital Signs Date Time Temp Pulse Resp B/P (MAP) Pulse Ox O2 Delivery O2 Flow Rate FiO2 04/12/19 09:00 Room Air 04/12/19 08:00 98.2 72 18 124/79 (94) 97 04/12/19 04:00 97.9 102 20 112/69 (83) 98 04/12/19 00:00 98.8 102 20 110/70 (83) 97 04/11/19 21:00 Room Air 04/11/19 20:00 98.2 110 18 119/75 (90) 99 04/11/19 16:00 98.6 109 20 108/68 (81) 95 Intake and Output 04/11/19 04/12/19 19:00 07:00 Intake Total 480 ml Balance 480 ml Intake Oral 480 ml # Voids 2 3 # Bowel Movements 1 Laboratory Tests 04/12/19 10:35: Sodium Level 138, Potassium Level 4.4, Chloride Level 107, Carbon Dioxide Level 16L, Anion Gap 15, Blood Urea Nitrogen 18, Creatinine 1.8H, Estimat Glomerular Filtration Rate , Glucose Level 155H, Calcium Level 8.8 Height (Feet): 6 Height (Inches): 0.00 Weight (Pounds): 180 Cardiovascular: normal rate Respiratory/Chest: lungs clear Abdomen: soft Objective LE edema Phil Enriquez MD Apr 12, 2019 13:06
--- NOTE | 2019-04-12 13:10 | GI Progress Note ---
Assessment/Plan Problems: (1) Abnormal LFTs ICD Codes: R94.5 - Abnormal results of liver function studies SNOMED: 333603668 (2) Abdominal pain ICD Codes: R10.9 - Unspecified abdominal pain SNOMED: 79679849 (3) Hepatic encephalopathy ICD Codes: K72.90 - Hepatic failure, unspecified without coma SNOMED: 32458829 (4) Liver cirrhosis ICD Codes: K74.60 - Unspecified cirrhosis of liver SNOMED: 40327532 Status: doing well, stable Status Narrative Discussed with Dr. De La Torre. Assessment/Plan Nonalcoholic cirrhosis Abdominal ultrasound reviewed noted with ascites Occult blood stool was negative Follow-up hepatitis panel>>> neg Trend LFTs, ammonia levels>>improving Lactulose + Xifaxan PPI paracentesis if needed PRN transfusions needs outpatient fu for GI procedures dc planning The patient was seen and examined at bedside and all new and available data was reviewed in the patients chart. I agree with the above findings, impression and plan. (Patient seen earlier today. Signature stamp does not reflect patient encounter time.). - Jose De La Torre MD Subjective Gastrointestinal/Abdominal: Reports: no symptoms Objective Last 24 Hour Vital Signs Date Time Temp Pulse Resp B/P (MAP) Pulse Ox O2 Delivery O2 Flow Rate FiO2 04/12/19 09:00 Room Air 04/12/19 08:00 98.2 72 18 124/79 (94) 97 04/12/19 04:00 97.9 102 20 112/69 (83) 98 04/12/19 00:00 98.8 102 20 110/70 (83) 97 04/11/19 21:00 Room Air 04/11/19 20:00 98.2 110 18 119/75 (90) 99 04/11/19 16:00 98.6 109 20 108/68 (81) 95 Intake and Output 04/11/19 04/12/19 19:00 07:00 Intake Total 480 ml Balance 480 ml Intake Oral 480 ml # Voids 2 3 # Bowel Movements 1 Laboratory Tests Test 04/12/19 10:35 Sodium Level 138 MMOL/L (136-145) Potassium Level 4.4 MMOL/L (3.5-5.1) Chloride Level 107 MMOL/L (98-107) Carbon Dioxide Level 16 MMOL/L (21-32) L Anion Gap 15 mmol/L (5-15) Blood Urea Nitrogen 18 mg/dL (7-18) Creatinine 1.8 MG/DL (0.55-1.30) H Estimat Glomerular Filtration Rate mL/min (>60) Glucose Level 155 MG/DL (74-106) H Calcium Level 8.8 MG/DL (8.5-10.1) Height (Feet): 6 Height (Inches): 0.00 Weight (Pounds): 180 General Appearance: no apparent distress Cardiovascular: normal rate Respiratory/Chest: normal breath sounds, no respiratory distress Abdominal Exam: normal bowel sounds, non tender, soft Extremities: normal range of motion, non-tender Stefany Breaux NP Apr 12, 2019 13:10
--- NOTE | 2019-04-12 14:51 | Discharge Summary ---
Discharge Summary Discharge Summary _ DATE OF ADMISSION: 04/05/2019 DATE OF DISCHARGE: 04/12/2019 DISCHARGED BY: Dr. Kelley REASON FOR ADMISSION: 73 years old male with past medical history of hepatic encephalopathy, liver cirrhosis, requiring multiply recurrent paracentesis cerebrovascular disease with a stroke, coronary artery disease, congestive heart failure, hypertension, hyperlipidemia, diabetes mellitus, presented for evaluation due to altered mental status. According to , patient was in the hospital several days ago for abdominal swelling and pain and undergone multiple paracentesis. According to patient , last night he was in his usual state of health , but woke up in the morning altered. Patient was difficult to arouse and subsequently EMS was called. Patient was found to be confused and subsequently was brought for evaluation. Upon evaluation vital signs revealed bradycardia with heart rate 50 , otherwise stable Laboratory work-up revealed no leukocytosis, hemoglobin 11.9, hematocrit 35.8, platelet count 178. Chemistry demonstrated evidence of renal failure with creatinine 2 and BUN 23. Lactic acid 2.0. Glucose 141. Total bilirubin 1.9, direct bilirubin 0.5. AST 46, ALT 14. Troponin negative, pro BNP 351 . Albumin 2.3. Ammonia level 176. CT of the head revealed chronic and age-related changes , but was negative for acute intracranial bleeding or mass-effect. CONSULTANTS: GI specialist Dr. De La Torre neurosurgery physician Dr. Enriquez surgery Dr. Fernandez [facility] COURSE: Patient admitted. GI specialist followed. Patient started on lactulose and rifaximin. Ammonia level was trending down; prior to discharge from initial 176 down to 48. Urine culture revealed mixed urogenital contaminant. Abdominal ultrasound demonstrated evidence of hepatic cirrhosis with portal atrophic nodular liver. Probable cholelithiasis. Gallbladder wall thickening noted , probably secondary to hemodynamic derangement related to hepatic disease and exaggerated by lack of distention. Less likely gallbladder wall thickening could indicate acute cholecystitis . Mildly increased renal echogenicity could be indicative of medical renal disease. Venous duplex bilateral lower extremities reveal no evidence of acute DVT. Hepatitis panel was negative. Stool for occult blood was negative. Serum alcohol , Tylenol , and salicylate levels were all negative. Patient was slowly hydrated. Renal parameters and electrolytes were closely monitored. [employer] followed. Electrolytes corrected as needed , and nephrotoxins were avoided. Creatinine from initial 2.0 down to 1.8. Surgeon followed. Legs were kept elevated. Venous duplex revealed no evidence of acute DVT . Abdominal pain was likely due to ascites and history of prior paracentesis . Pain management was addressed. No surgical abdomen as per surgeon . No surgical intervention was required. Patient started on diet as tolerated. LFT were trending down. Total bilirubin from 1.9 down to 1.6 and direct bilirubin from 0.5 down to 0.4. AST down to normal and ALT remained normal . GI prophylaxis provided. Diet texture provided as per speech therapist recommendation with one-to-one feeding and strict aspiration precaution. Nutritional supplements implemented in plan of care as per registered midwife recommendations. Patient clinically stabilized and was ready for discharge home with home health services to follow . FINAL DIAGNOSES: Hepatic encephalopathy Liver cirrhosis Abnormal LFT Abdominal pain due to ascites Chronic kidney disease, multifactorial / due to diabetes, hypertension and cirrhosis Coronary artery disease Leg edema Severe protein calorie malnutrition DISCHARGE MEDICATIONS: See Medication Reconciliation list. DISCHARGE INSTRUCTIONS: Patient was discharged home with home health services. Follow up with primary care provider in one week. I have been assigned to dictate discharge summary for this account. I was not involved in the patient's management. Yaquelin Paulino NP Apr 12, 2019 14:51
--- NOTE | 2019-04-12 18:35 | Surgery Progress Note ---
Surgery Progress Note Subjective Symptoms: improved, tolerating diet, voiding well, passing flatus, BM, pain decreased Objective Last 24 Hour Vital Signs Date Time Temp Pulse Resp B/P (MAP) Pulse Ox O2 Delivery O2 Flow Rate FiO2 04/12/19 09:00 Room Air 04/12/19 08:00 98.2 72 18 124/79 (94) 97 04/12/19 04:00 97.9 102 20 112/69 (83) 98 04/12/19 00:00 98.8 102 20 110/70 (83) 97 04/11/19 21:00 Room Air 04/11/19 20:00 98.2 110 18 119/75 (90) 99 I&O Intake and Output 04/11/19 04/12/19 19:00 07:00 Intake Total 480 ml Balance 480 ml Intake Oral 480 ml # Voids 2 3 # Bowel Movements 1 Dressing: dry Wound: clean Cardiovascular: RSR Respiratory: clear Abdomen: soft, flat, non-tender, present bowel sounds Extremities: edema - improved , no tenderness, no cyanosis, pulses, other Laboratory Tests Test 04/12/19 10:35 Sodium Level 138 MMOL/L (136-145) Potassium Level 4.4 MMOL/L (3.5-5.1) Chloride Level 107 MMOL/L (98-107) Carbon Dioxide Level 16 MMOL/L (21-32) L Anion Gap 15 mmol/L (5-15) Blood Urea Nitrogen 18 mg/dL (7-18) Creatinine 1.8 MG/DL (0.55-1.30) H Estimat Glomerular Filtration Rate mL/min (>60) Glucose Level 155 MG/DL (74-106) H Calcium Level 8.8 MG/DL (8.5-10.1) Plan Problems: (1) Leg edema Assessment & Plan: Overall leg edema significantly improved. Continue with leg elevation Medication as written venous duplex noted no dvt improved (2) Abdominal pain Assessment & Plan: due to ascites. hx of prior paracentesis no surgical abdomen soft, distended, fluid filled o n/v/f/c okay for diet will follow with recs thank you (3) Abnormal LFTs Assessment & Plan: elevated t bili. abnormal lft's not obstructive in nature no acute intervention planned Impression: Evidence of hepatic cirrhosis, with coarsened atrophic nodular liver Probable cholelithiasis. Gallbladder wall thickening is noted, probably secondary to the hemodynamic derangements related to the hepatic disease and exaggerated by lack of distention. Less likely, gallbladder wall thickening could indicate acute cholecystitis, and bladder are nuclear scan should be considered if there is high clinical suspicion Ascites Left pleural effusion Mildly increased renal echogenicity, could indicate medical renal disease Note inability to visualize the abdominal aorta trend labs will follow Additional Comments okay to d/c from surgical standpoint f/u outpatient prn time of note does not reflect when patient seen thank you for allowing me to participate in care Sumit Fernandez Apr 12, 2019 18:35
== END 2019-04-12 13:13 | disposition home health service (06) | DRG 441 ==
LOC: EDBD 10:03 → EMR 10:24 → 4E 11:37 → EDBEDREQ 13:08
DX: K72.90 Hepatic failure, unspecified without coma (principal); E43 Unspecified severe protein-calorie malnutrition; R18.8 Other ascites; I13.0 Hypertensive heart and chronic kidney disease with heart failure and stage 1 through stage 4 chronic kidney disease, or unspecified chronic kidney disease; K74.60 Unspecified cirrhosis of liver; N18.9 Chronic kidney disease, unspecified; Z91.14 Patient's other noncompliance with medication regimen; I25.10 Atherosclerotic heart disease of native coronary artery without angina pectoris; Z95.5 Presence of coronary angioplasty implant and graft; Z79.82 Long term (current) use of aspirin; E11.22 Type 2 diabetes mellitus with diabetic chronic kidney disease; Z86.73 Personal history of transient ischemic attack (TIA), and cerebral infarction without residual deficits; R29.6 Repeated falls; E78.5 Hyperlipidemia, unspecified; I50.9 Heart failure, unspecified; R00.1 Bradycardia, unspecified; K80.20 Calculus of gallbladder without cholecystitis without obstruction
CPT/HCPCS: 36415; 70450; 76700; 80048; 80053; 80061; 80307; 80329; 81001; 81003; 82140; 82248; 82270; 82378; 82550; 82553; 82607; 82728; 82746; 82962; 82977; 83036; 83540; 83550; 83605; 83690; 83735; 83880; 84100; 84300; 84439; 84443; 84484; 84550; 85025; 85044; 85610; 85730; 86140; 86705; 86709; 86803; 87086; 87340; 89050; 93005; 93970; 99285; C9399; J8499